=== PATIENT | male | born 1965 | race Caucasian/White ===

== ENCOUNTER 2018-03-01 13:34 | Inpatient (IN) | payer OTHER ==
[2018-03-01] MEDS ORDERED: SODIUM CHLORIDE 0.9% 1,000 ML IV STA (14:01)
[2018-03-01] MEDS ORDERED: ONDANSETRON 4 MG/2 ML VIAL IVP STA (14:01)
[2018-03-01 15:01] LABS: Basophils % (A) 0 %; Eosinophils # (A) 0.1 k/uL (0-0.7); Eosinophils % (A) 1 %; HCT 53.6 % (39.0-53.0); HGB 18.4 gm/dL (13.0-17.5); Lymphocytes # (A) 0.7 k/uL (1.0-4.8); Lymphocytes % (A) 3 %; MCH 29.3 pg (25.0-35.0); MCHC 34.4 g/dL (31.0-37.0); Mean Platelet Volume 7.5; Monocytes # (A) 1.1 k/uL (0-1.0); Monocytes % (A) 5 %; Neutrophils # (A) 20.4 k/uL (1.3-7.7); Neutrophils % (A) 91 %; Platelet Count 289 k/uL (150-450); RDW 12.8 % (11.5-15.5); WBC 22.4 k/uL (3.8-10.6)
--- NOTE | 2018-03-01 15:08 | ED ---
Abdominal Pain HPI - General Chief Complaint: Abdominal Pain Stated Complaint: Abd pain Time Seen by Provider: 03/01/18 14:01 Source: patient, RN notes reviewed Mode of arrival: ambulatory Limitations: no limitations - History of Present Illness Initial Comments: 52-year-old male presents emergency Department chief complaint of nausea vomiting. Patient states he had a few episodes throughout the night and a couple this morning. Patient states she has mild abdominal discomfort states that this feels more nauseated. Patient denies any melena, hematochezia, hematemesis or coffee-ground emesis. Patient states that he did have slight diarrhea no dysuria hematuria. Denies fever, chills no prior abdominal surgeries. No sick contacts. Patient denies chest pain, short of breath, flank pain. - Related Data Home Medications Medication Instructions Recorded Confirmed Lisinopril-Hctz 20-12.5 mg 1 tab PO DAILY 03/01/18 03/01/18 [Zestoretic 20-12.5] [place]-3 Fatty Acids/Fish Oil [Fish 1 cap PO DAILY 03/01/18 03/01/18 Oil 1,000 mg Softgel] Allergies Allergy/AdvReac Type Severity Reaction Status Date / Time No Known Allergies Allergy Verified 03/01/18 13:58 Review of Systems ROS Statement: Those systems with pertinent positive or pertinent negative responses have been documented in the HPI. ROS Other: All systems not noted in ROS Statement are negative. Past Medical History Past Medical History: No Reported History History of Any Multi-Drug Resistant Organisms: None Reported Past Surgical History: No Surgical Hx Reported Past Psychological History: No Psychological Hx Reported Smoking Status: Never smoker Past Alcohol Use History: None Reported Past Drug Use History: None Reported General Exam Limitations: no limitations General appearance: alert, in no apparent distress Head exam: Present: atraumatic, normocephalic, normal inspection Neck exam: Present: normal inspection. Absent: tenderness, meningismus, lymphadenopathy Respiratory exam: Present: normal lung sounds bilaterally. Absent: respiratory distress, wheezes, rales, rhonchi, stridor Cardiovascular Exam: Present: regular rate, normal rhythm, normal heart sounds. Absent: systolic murmur, diastolic murmur, rubs, gallop, clicks GI/Abdominal exam: Present: soft, normal bowel sounds. Absent: distended, tenderness, guarding, rebound, rigid Course Vital Signs 03/01/18 03/01/18 13:42 16:23 Temperature 98.9 F Pulse Rate 114 H 94 Respiratory 20 20 Rate Blood Pressure 179/105 165/82 O2 Sat by Pulse 99 97 Oximetry Medical Decision Making - Lab Data Result diagrams: 03/01/18 14:50 03/01/18 14:50 Lab Results 03/01/18 03/01/18 03/01/18 Range/Units 14:50 14:50 16:30 WBC 22.4 H (3.8-10.6) k/uL RBC 6.30 H (4.30-5.90) m/uL Hgb 18.4 H (13.0-17.5) gm/dL Hct 53.6 H (39.0-53.0) % MCV 85.0 (80.0-100.0) fL MCH 29.3 (25.0-35.0) pg MCHC 34.4 (31.0-37.0) g/dL RDW 12.8 (11.5-15.5) % Plt Count 289 (150-450) k/uL Neutrophils % 91 % Lymphocytes % 3 % Monocytes % 5 % Eosinophils % 1 % Basophils % 0 % Neutrophils # 20.4 H (1.3-7.7) k/uL Lymphocytes # 0.7 L (1.0-4.8) k/uL Monocytes # 1.1 H (0-1.0) k/uL Eosinophils # 0.1 (0-0.7) k/uL Basophils # 0.0 (0-0.2) k/uL Sodium 136 L (137-145) mmol/L Potassium 3.8 (3.5-5.1) mmol/L Chloride 100 (98-107) mmol/L Carbon Dioxide 20 L (22-30) mmol/L Anion Gap 16 mmol/L BUN 19 (9-20) mg/dL Creatinine 0.90 (0.66-1.25) mg/dL Est GFR (CKD-EPI)AfAm >90 (>60 ml/min/1.73 sqM) Est GFR (CKD-EPI)NonAf >90 (>60 ml/min/1.73 sqM) Glucose 194 H (74-99) mg/dL Plasma Lactic Acid Yair 2.5 H* (0.7-2.0) mmol/L Calcium 9.6 (8.4-10.2) mg/dL Total Bilirubin 1.4 H (0.2-1.3) mg/dL AST 144 H (17-59) U/L ALT 300 H (21-72) U/L Alkaline Phosphatase 143 H (38-126) U/L Total Protein 7.7 (6.3-8.2) g/dL Albumin 4.2 (3.5-5.0) g/dL Amylase 611 H* (30-110) U/L Lipase 3042 H (23-300) U/L Disposition Clinical Impression: Choledocholithiasis, Pancreatitis, Leukocytosis Disposition: ADMITTED IP TO THIS HOSP Condition: Fair Referrals: Koby Miranda DO [Primary Care Provider] - 1-2 days
[2018-03-01 15:14] LABS: ALT 300 U/L (21-72); AST 144 U/L (17-59); Albumin 4.2 g/dL (3.5-5.0); Alkaline Phosphatase 143 U/L (38-126); Anion Gap 16 mmol/L; Blood Urea Nitrogen 19 mg/dL (9-20); Calcium 9.6 mg/dL (8.4-10.2); Carbon Dioxide 20 mmol/L (22-30); Chloride 100 mmol/L (98-107); Glucose 194 mg/dL (74-99); Potassium 3.8 mmol/L (3.5-5.1); Sodium 136 mmol/L (137-145); Total Bilirubin 1.4 mg/dL (0.2-1.3); Total Protein 7.7 g/dL (6.3-8.2)
[2018-03-01] MEDS ORDERED: RX INFO: IV CONTRAST WAS GIVEN 1 EACH MISC MISCELLANE PRN (15:28)
[2018-03-01 15:29] LABS: Lipase 3042 U/L (23-300)
[2018-03-01 15:30] LABS: Amylase 611 U/L (30-110)
--- NOTE | 2018-03-01 16:20 | US ---
EXAMINATION TYPE: US abdomen limited DATE OF EXAM: 03/01/2018 COMPARISON: NONE CLINICAL HISTORY: 52-year-old male Pain. Abdominal pain since last night, vomiting Technique: Multiple sonographic images of the right upper quadrant are obtained. FINDINGS: AUTOMATION APPLICATION ENGINEER NOTES: Extreme technical limitations due to patient's body habitus ( 5'6" and 388 poun ds) and overlying bowel content Liver Length: 21.4 cm Gallbladder Wall: 0.4 cm CBD: 4.5 mm Right Kidney: 11.6 x 5.0 x 5.3 cm Pancreas: Obscured by bowel gas Liver: limited evaluation, unable to penetrate, enlarged, attenuating with areas of focal sparing ad jacent to GB. Assessment for focal lesions secondarily limited. Gallbladder: stones, GB wall upper limits of normal there are no abnormal distention. Evidence for sonographic Strickland's sign: no CBD: limited evaluation Right Kidney: no evidence of hydronephrosis. IMPRESSION: 1. Very limited exam due to large body habitus. 2. Hepatomegaly (21.4 cm) with severe hepatic steatosis. 3. Cholelithiasis. There is borderline gallbladder wall thickening. No sonographic Strickland sign or abn ormal distention. Findings may reflect chronic cholecystitis. 4. A portion of the bile duct is visualized and is not dilated.
[2018-03-01] MEDS ORDERED: SODIUM CHLORIDE 0.9% 1,000 ML IV ONE (17:01)
[2018-03-01] MEDS ORDERED: PIPERACILLIN-TAZOBACTAM 3.375 GM in DEXTROSE/WATER 1 50ML.BAG IVPB STA (17:02)
[2018-03-01] MEDS ORDERED: NALOXONE 0.4 MG/ML 1 ML VIAL IV PRN (17:09)
[2018-03-01] MEDS ORDERED: ONDANSETRON 4 MG/2 ML VIAL IVP PRN (17:09)
[2018-03-01] MEDS: SODIUM CHLORIDE 0.9% 1,000 ML IV SCH (18:16)
[2018-03-01] MEDS ORDERED: MORPHINE SULFATE 4MG/4ML SYRG IVP PRN ×2 (18:20→22:03)
--- NOTE | 2018-03-01 20:01 | P.HPIM ---
History of Present Illness 52-year-old male presents emergency Department chief complaint of nausea vomiting. Patient states he had a few episodes throughout the night and a couple this morning. Patient states she has mild abdominal discomfort states that this feels more nauseated. Patient denies any melena, hematochezia, hematemesis or coffee-ground emesis. Patient states that he did have slight diarrhea no dysuria hematuria. Denies fever, chills no prior abdominal surgeries. No sick contacts. Patient denies chest pain, short of breath, flank pain. Patient's pain is 10/10 severity epigastric radiating to bilateral upper abdominal area. Patient is found to have pancreatic that is with elevated lipase and the and malaise along with elevated liver enzymes and cholelithiasis without any cholecystitis although there is a suspicious gallbladder thickening without positive Strickland sign clinically or radiologically. Patient was started on antibiotics IV fluids and by mouth, surgery was consulted. Review of Systems REVIEW OF SYSTEMS: CONSTITUTIONAL: No fever, no malaise, no fatigue. HEENT: No recent visual problems or hearing problems. Denied any sore throat. CARDIOVASCULAR: No chest pain, orthopnea, PND, no palpitations, no syncope. PULMONARY: No shortness of breath, no cough, no hemoptysis. GASTROINTESTINAL: As mentioned in HPI NEUROLOGICAL: No headaches, no weakness, no numbness. HEMATOLOGICAL: Denies any bleeding or petechiae. GENITOURINARY: Denies any burning micturition, frequency, or urgency. MUSCULOSKELETAL/RHEUMATOLOGICAL: Denies any joint pain, swelling, or any muscle pain. ENDOCRINE: Denies any polyuria or polydipsia. The rest of the 14-point review of systems is negative. Past Medical History Past Medical History: No Reported History History of Any Multi-Drug Resistant Organisms: None Reported Past Surgical History: No Surgical Hx Reported Past Psychological History: No Psychological Hx Reported Smoking Status: Never smoker Past Alcohol Use History: None Reported Past Drug Use History: None Reported Medications and Allergies Home Medications Medication Instructions Recorded Confirmed Type Lisinopril-Hctz 20-12.5 mg 1 tab PO DAILY 03/01/18 03/01/18 History [Zestoretic 20-12.5] [place]-3 Fatty Acids/Fish Oil [Fish 1 cap PO DAILY 03/01/18 03/01/18 History Oil 1,000 mg Softgel] Allergies Allergy/AdvReac Type Severity Reaction Status Date / Time No Known Allergies Allergy Verified 03/01/18 13:58 Physical Exam Vitals: Vital Signs Temp Pulse Resp BP Pulse Ox 03/01/18 18:43 111 H 18 164/82 95 03/01/18 16:23 94 20 165/82 97 03/01/18 13:42 98.9 F 114 H 20 179/105 99 Intake and Output 03/01/18 03/01/18 03/01/18 06:59 14:59 22:59 Other: Weight 175.994 kg PHYSICAL EXAMINATION: GENERAL: The patient is alert and oriented x3, not in any acute distress. Morbidly obese HEENT: Pupils are round and equally reacting to light. EOMI. No scleral icterus. No conjunctival pallor. Normocephalic, atraumatic. No pharyngeal erythema. No thyromegaly. CARDIOVASCULAR: S1 and S2 present. No murmurs, rubs, or gallops. PULMONARY: Chest is clear to auscultation, no wheezing or crackles. ABDOMEN: Soft, obese belly epigastric abdominal tenderness MUSCULOSKELETAL: No joint swelling or deformity. EXTREMITIES: No cyanosis, clubbing, or pedal edema. NEUROLOGICAL: Gross neurological examination did not reveal any focal deficits. SKIN: No rashes. Results CBC & Chem 7: 03/01/18 14:50 03/01/18 14:50 Labs: Abnormal Lab Results - Last 24 Hours (Table) 03/01/18 03/01/18 03/01/18 Range/Units 14:50 14:50 16:30 WBC 22.4 H (3.8-10.6) k/uL RBC 6.30 H (4.30-5.90) m/uL Hgb 18.4 H (13.0-17.5) gm/dL Hct 53.6 H (39.0-53.0) % Neutrophils # 20.4 H (1.3-7.7) k/uL Lymphocytes # 0.7 L (1.0-4.8) k/uL Monocytes # 1.1 H (0-1.0) k/uL Sodium 136 L (137-145) mmol/L Carbon Dioxide 20 L (22-30) mmol/L Glucose 194 H (74-99) mg/dL Plasma Lactic Acid Yair 2.5 H* (0.7-2.0) mmol/L Total Bilirubin 1.4 H (0.2-1.3) mg/dL AST 144 H (17-59) U/L ALT 300 H (21-72) U/L Alkaline Phosphatase 143 H (38-126) U/L Amylase 611 H* (30-110) U/L Lipase 3042 H (23-300) U/L Assessment and Plan Plan: -Pancreatic that is: Possibly gallstone pancreatitis patient will be nothing by mouth continue Zosyn for now. Patient is not an alcoholic morbid obesity -cholelithiasis low possibly of cholecystitis surgery was consulted -Leukocytosis secondary to pancreatitis. Next and-elevated liver enzymes repeat liver enzymes will be obtained probably due to passed gallstone -Tachycardia: Secondary to pain patient was started on morphine IV for pain
[2018-03-01] MEDS: PANTOPRAZOLE 40 MG/10 ML VIAL IVP SCH (20:26)
[2018-03-01] MEDS: HYDROcodone/APAP 5-325MG 1 EACH TAB PO PRN (21:05)
[2018-03-02] MEDS ORDERED: MORPHINE SULFATE 4MG/4ML SYRG IVP PRN (00:05)
[2018-03-02] MEDS: SODIUM CHLORIDE 0.9% 1,000 ML IV SCH ×2 (04:26→12:02)
[2018-03-02] MEDS: HYDROcodone/APAP 5-325MG 1 EACH TAB PO PRN (04:49)
[2018-03-02] MEDS: MORPHINE SULFATE 4MG/4ML SYRG IVP PRN ×3 (06:19→18:17)
[2018-03-02 07:43] LABS: ALT 196 U/L (21-72); AST 65 U/L (17-59); Albumin 3.6 g/dL (3.5-5.0); Alkaline Phosphatase 98 U/L (38-126); Anion Gap 12 mmol/L; Blood Urea Nitrogen 24 mg/dL (9-20); Calcium 8.5 mg/dL (8.4-10.2); Carbon Dioxide 28 mmol/L (22-30); Chloride 98 mmol/L (98-107); Cholesterol 142 mg/dL (<200); Glucose 141 mg/dL (74-99); HDL Cholesterol 52 mg/dL (40-60); LDL Cholesterol,Calculated 69 mg/dL (0-99); Potassium 3.8 mmol/L (3.5-5.1); Sodium 138 mmol/L (137-145); Total Bilirubin 1.1 mg/dL (0.2-1.3); Total Protein 6.8 g/dL (6.3-8.2); Triglycerides 104 mg/dL (<150)
[2018-03-02 07:47] LABS: HCT 53.1 % (39.0-53.0); HGB 17.4 gm/dL (13.0-17.5); MCH 28.9 pg (25.0-35.0); MCHC 32.9 g/dL (31.0-37.0); MCV 88.1 fL (80.0-100.0); Mean Platelet Volume 7.4; Platelet Count 238 k/uL (150-450); RBC 6.03 m/uL (4.30-5.90); RDW 13.2 % (11.5-15.5)
[2018-03-02 07:49] LABS: WBC 29.8 k/uL (3.8-10.6)
[2018-03-02] MEDS ORDERED: LISINOPRIL-HCTZ 20-12.5 MG 1 EACH TAB PO SCH (09:00)
[2018-03-02] MEDS: OMEGA 3 1000MG PO SCH (11:43)
[2018-03-02] MEDS: PANTOPRAZOLE 40 MG/10 ML VIAL IVP SCH ×2 (11:50→21:51)
--- NOTE | 2018-03-02 14:43 | P.PN ---
Subjective Patient was admitted for gall stone pancreatitis. Patient's abdominal pain improved but still complaining of abdominal pain mostly in the lower quadrants rather and epigastric abdominal pain. Patient leukocytosis worsened liver enzymes improved. Patient will remain nothing by mouth tonight if his symptoms improve can be started on clear liquid diet tomorrow. Nausea improved. Discuss with surgery patient eventually will need a cholecystectomy because of the morbid obesity patient will be low to intermediate risk for surgery. I do not believe patient will need any further testing for preoperative clearance Constitutional: Denied any fatigue denied any fever. Cardio vascular: denied any chest pain, palpitations Gastrointestinal denied any nausea vomiting Pulmonary: Denied any shortness of breath cough Neurologic denied any new focal deficits Objective - Vital Signs Vital signs: Vital Signs Temp 98.2 F 03/02/18 07:00 Pulse 98 03/02/18 07:00 Resp 17 03/02/18 07:00 BP 116/60 03/02/18 07:00 Pulse Ox 94 L 03/02/18 07:00 Intake & Output 03/01/18 03/02/18 03/02/18 18:59 06:59 18:59 Intake Total 0 Balance 0 Weight 175.994 kg 175.994 kg Intake: Oral 0 Other: # Voids 2 - Exam GENERAL: The patient is alert and oriented x3, not in any acute distress. Morbidly obese HEENT: Pupils are round and equally reacting to light. EOMI. No scleral icterus. No conjunctival pallor. Normocephalic, atraumatic. No pharyngeal erythema. No thyromegaly. CARDIOVASCULAR: S1 and S2 present. No murmurs, rubs, or gallops. PULMONARY: Chest is clear to auscultation, no wheezing or crackles. ABDOMEN: Soft, obese belly epigastric abdominal tenderness MUSCULOSKELETAL: No joint swelling or deformity. EXTREMITIES: No cyanosis, clubbing, or pedal edema. NEUROLOGICAL: Gross neurological examination did not reveal any focal deficits. SKIN: No rashes. - Labs CBC & Chem 7: 03/02/18 07:01 03/02/18 07:01 Labs: Abnormal Lab Results - Last 24 Hours (Table) 03/01/18 03/01/18 03/01/18 Range/Units 14:50 14:50 16:30 WBC 22.4 H (3.8-10.6) k/uL RBC 6.30 H (4.30-5.90) m/uL Hgb 18.4 H (13.0-17.5) gm/dL Hct 53.6 H (39.0-53.0) % Neutrophils # 20.4 H (1.3-7.7) k/uL Lymphocytes # 0.7 L (1.0-4.8) k/uL Monocytes # 1.1 H (0-1.0) k/uL Sodium 136 L (137-145) mmol/L Carbon Dioxide 20 L (22-30) mmol/L BUN (9-20) mg/dL Glucose 194 H (74-99) mg/dL Plasma Lactic Acid Yair 2.5 H* (0.7-2.0) mmol/L Total Bilirubin 1.4 H (0.2-1.3) mg/dL AST 144 H (17-59) U/L ALT 300 H (21-72) U/L Alkaline Phosphatase 143 H (38-126) U/L Amylase 611 H* (30-110) U/L Lipase 3042 H (23-300) U/L 03/02/18 03/02/18 Range/Units 07:01 07:01 WBC 29.8 H* (3.8-10.6) k/uL RBC 6.03 H (4.30-5.90) m/uL Hgb (13.0-17.5) gm/dL Hct 53.1 H (39.0-53.0) % Neutrophils # (1.3-7.7) k/uL Lymphocytes # (1.0-4.8) k/uL Monocytes # (0-1.0) k/uL Sodium (137-145) mmol/L Carbon Dioxide (22-30) mmol/L BUN 24 H (9-20) mg/dL Glucose 141 H (74-99) mg/dL Plasma Lactic Acid Yair (0.7-2.0) mmol/L Total Bilirubin (0.2-1.3) mg/dL AST 65 H (17-59) U/L ALT 196 H (21-72) U/L Alkaline Phosphatase (38-126) U/L Amylase (30-110) U/L Lipase (23-300) U/L Assessment and Plan Plan: -Pancreatic that is: Possibly gallstone pancreatitis patient will be nothing by mouth continue Zosyn for now. Patient is not an alcoholic , patient will need a cholecystectomy will be low to intermediate risk for surgery will obtain an EKG. Patient doesn't have any murmurs no further testing is necessary for preoperative clearance. Of course this surgery will be done once his pancreatitis is taken care of. morbid obesity -cholelithiasis low possibly of cholecystitis surgery was consulted -Leukocytosis secondary to pancreatitis. Next and-elevated liver enzymes repeat liver enzymes will be obtained probably due to passed gallstone -Tachycardia: Secondary to pain patient was started on morphine IV for pain
--- NOTE | 2018-03-02 14:53 | P.GSCN ---
History of Present Illness Consult date: 03/02/18 History of present illness: This is a 52-year-old male who began experiencing abdominal pain 2 days ago.He states he's never had pain like this before. He denies any history of surgeries. He denies any drinking of any alcohol for many years. He denies fevers or chills. He states his abdominal pain is mostly in his upper abdomen and wraps around both sides. He's passing normal bowel movements denies any nausea vomiting Past Medical History Past Medical History: No Reported History History of Any Multi-Drug Resistant Organisms: None Reported Past Surgical History: No Surgical Hx Reported Past Psychological History: No Psychological Hx Reported Smoking Status: Never smoker Past Alcohol Use History: None Reported Past Drug Use History: None Reported Medications and Allergies Home Medications Medication Instructions Recorded Confirmed Type Lisinopril-Hctz 20-12.5 mg 1 tab PO DAILY 03/01/18 03/01/18 History [Zestoretic 20-12.5] [place]-3 Fatty Acids/Fish Oil [Fish 1 cap PO DAILY 03/01/18 03/01/18 History Oil 1,000 mg Softgel] Allergies Allergy/AdvReac Type Severity Reaction Status Date / Time No Known Allergies Allergy Verified 03/01/18 13:58 Surgical - Exam Osteopathic Statement: *. No significant issues noted on an osteopathic structural exam other than those noted in the History and Physical/Consult. Vital Signs Temp Pulse Resp BP Pulse Ox 98.9 F 114 H 20 179/105 99 03/01/18 13:42 03/01/18 13:42 03/01/18 13:42 03/01/18 13:42 03/01/18 13:42 - General Morbidly obese - Eyes PERRL - ENT normal mucosa - Neck trachea midline - Respiratory normal expansion, normal respiratory effort - Cardiovascular Rhythm: regular - Abdomen Morbidly obese soft belly mild tenderness palpation midepigastric area no rebound rigidity or guarding - Neurologic normal coordination, normal sensation - Psychiatric oriented to time, oriented to person, oriented to place Results - Labs 03/02/18 07:01 03/02/18 07:01 Abnormal Lab Results - Last 24 Hours (Table) 03/01/18 03/01/18 03/01/18 Range/Units 14:50 14:50 16:30 WBC 22.4 H (3.8-10.6) k/uL RBC 6.30 H (4.30-5.90) m/uL Hgb 18.4 H (13.0-17.5) gm/dL Hct 53.6 H (39.0-53.0) % Neutrophils # 20.4 H (1.3-7.7) k/uL Lymphocytes # 0.7 L (1.0-4.8) k/uL Monocytes # 1.1 H (0-1.0) k/uL Sodium 136 L (137-145) mmol/L Carbon Dioxide 20 L (22-30) mmol/L BUN (9-20) mg/dL Glucose 194 H (74-99) mg/dL Plasma Lactic Acid Yair 2.5 H* (0.7-2.0) mmol/L Total Bilirubin 1.4 H (0.2-1.3) mg/dL AST 144 H (17-59) U/L ALT 300 H (21-72) U/L Alkaline Phosphatase 143 H (38-126) U/L Amylase 611 H* (30-110) U/L Lipase 3042 H (23-300) U/L 03/02/18 03/02/18 Range/Units 07:01 07:01 WBC 29.8 H* (3.8-10.6) k/uL RBC 6.03 H (4.30-5.90) m/uL Hgb (13.0-17.5) gm/dL Hct 53.1 H (39.0-53.0) % Neutrophils # (1.3-7.7) k/uL Lymphocytes # (1.0-4.8) k/uL Monocytes # (0-1.0) k/uL Sodium (137-145) mmol/L Carbon Dioxide (22-30) mmol/L BUN 24 H (9-20) mg/dL Glucose 141 H (74-99) mg/dL Plasma Lactic Acid Yair (0.7-2.0) mmol/L Total Bilirubin (0.2-1.3) mg/dL AST 65 H (17-59) U/L ALT 196 H (21-72) U/L Alkaline Phosphatase (38-126) U/L Amylase (30-110) U/L Lipase (23-300) U/L Diabetes panel 03/01/18 03/02/18 Range/Units 14:50 07:01 Sodium 136 L 138 (137-145) mmol/L Potassium 3.8 3.8 (3.5-5.1) mmol/L Chloride 100 98 (98-107) mmol/L Carbon Dioxide 20 L 28 (22-30) mmol/L BUN 19 24 H (9-20) mg/dL Creatinine 0.90 0.90 (0.66-1.25) mg/dL Glucose 194 H 141 H (74-99) mg/dL Calcium 9.6 8.5 (8.4-10.2) mg/dL AST 144 H 65 H (17-59) U/L ALT 300 H 196 H (21-72) U/L Alkaline Phosphatase 143 H 98 (38-126) U/L Total Protein 7.7 6.8 (6.3-8.2) g/dL Albumin 4.2 3.6 (3.5-5.0) g/dL Triglycerides 104 (<150) mg/dL HDL Cholesterol 52 (40-60) mg/dL Calcium panel 03/01/18 03/02/18 Range/Units 14:50 07:01 Calcium 9.6 8.5 (8.4-10.2) mg/dL Albumin 4.2 3.6 (3.5-5.0) g/dL Pituitary panel 03/01/18 03/02/18 Range/Units 14:50 07:01 Sodium 136 L 138 (137-145) mmol/L Potassium 3.8 3.8 (3.5-5.1) mmol/L Chloride 100 98 (98-107) mmol/L Carbon Dioxide 20 L 28 (22-30) mmol/L BUN 19 24 H (9-20) mg/dL Creatinine 0.90 0.90 (0.66-1.25) mg/dL Glucose 194 H 141 H (74-99) mg/dL Calcium 9.6 8.5 (8.4-10.2) mg/dL Adrenal panel 03/01/18 03/02/18 Range/Units 14:50 07:01 Sodium 136 L 138 (137-145) mmol/L Potassium 3.8 3.8 (3.5-5.1) mmol/L Chloride 100 98 (98-107) mmol/L Carbon Dioxide 20 L 28 (22-30) mmol/L BUN 19 24 H (9-20) mg/dL Creatinine 0.90 0.90 (0.66-1.25) mg/dL Glucose 194 H 141 H (74-99) mg/dL Calcium 9.6 8.5 (8.4-10.2) mg/dL Total Bilirubin 1.4 H 1.1 (0.2-1.3) mg/dL AST 144 H 65 H (17-59) U/L ALT 300 H 196 H (21-72) U/L Alkaline Phosphatase 143 H 98 (38-126) U/L Total Protein 7.7 6.8 (6.3-8.2) g/dL Albumin 4.2 3.6 (3.5-5.0) g/dL Assessment and Plan Assessment: Pancreatitis likely secondary to gallstones Plan: Continue medical management with nothing by mouth and IV fluids. I discussed with the patient he would likely need a cholecystectomy prior to discharge once his pancreatitis is cleared. I had a discussion with the patient regarding his risks of surgery. Given the patient's morbid obesity he is at a much higher risk for complications of surgery. The risks of surgery including bleeding infection damage surrounding tissue need for conversion to open and damage to common bile duct wall discussed with the patient he stated he understood and consented.
[2018-03-02 14:58] LABS: Amylase 537 U/L (30-110)
[2018-03-02 14:59] LABS: Lipase 2612 U/L (23-300)
[2018-03-02] MEDS: NYSTATIN 100,000 UNIT/GM POWD 15 GM TOPICAL SCH (21:51)
[2018-03-03] MEDS: MORPHINE SULFATE 4MG/4ML SYRG IVP PRN ×6 (00:21→21:45)
[2018-03-03] MEDS: SODIUM CHLORIDE 0.9% 1,000 ML IV SCH ×3 (00:21→20:31)
[2018-03-03 07:46] LABS: HCT 44.3 % (39.0-53.0); HGB 14.8 gm/dL (13.0-17.5); MCH 29.7 pg (25.0-35.0); MCHC 33.3 g/dL (31.0-37.0); MCV 89.1 fL (80.0-100.0); Mean Platelet Volume 7.9; Platelet Count 193 k/uL (150-450); RBC 4.97 m/uL (4.30-5.90); RDW 13.3 % (11.5-15.5); WBC 22.1 k/uL (3.8-10.6)
[2018-03-03] MEDS: OMEGA 3 1000MG PO SCH (09:46)
[2018-03-03] MEDS: PANTOPRAZOLE 40 MG/10 ML VIAL IVP SCH ×2 (09:48→21:45)
[2018-03-03] MEDS: NYSTATIN 100,000 UNIT/GM POWD 15 GM TOPICAL SCH ×2 (09:48→21:46)
--- NOTE | 2018-03-03 11:11 | P.PN ---
Subjective Progress Note Date: 03/03/18 Patient is feeling better today, no NV no BM. Abdominal pain is still there but improved per patient. He is hungry Objective - Vital Signs Vital signs: Vital Signs Temp 97.7 F 03/03/18 02:00 Pulse 128 H 03/03/18 02:00 Resp 19 03/03/18 02:00 BP 133/76 03/03/18 02:00 Pulse Ox 93 L 03/03/18 07:05 Intake & Output 03/02/18 03/03/18 03/03/18 18:59 06:59 18:59 Intake Total 750 0 Balance 750 0 Intake: Intake, IV Titration 750 Amount Sodium Chloride 0.9% 1, 750 000 ml @ 100 mls/hr IV . Q10H IGNACIO Rx#:[id number] Oral 0 0 Other: # Voids 2 2 - Constitutional General appearance: Present: cooperative - Respiratory Details: nonlabored - Cardiovascular Rhythm: regular - Gastrointestinal Gastrointestinal Comment(s): obese, soft, mild TTP mid epigastric - Psychiatric Psychiatric: Present: A&O x's 3 - Labs CBC & Chem 7: 03/03/18 06:18 03/02/18 07:01 Labs: Abnormal Lab Results - Last 24 Hours (Table) 03/02/18 03/03/18 03/03/18 Range/Units 07:01 06:18 06:18 WBC 22.1 H (3.8-10.6) k/uL Amylase 537 H* (30-110) U/L Lipase 2612 H 1000 H (23-300) U/L Microbiology - Last 24 Hours (Table) 03/01/18 16:30 Blood Culture - Preliminary Blood No Growth after 24 hours Assessment and Plan Assessment: Pancreatitis likely secondary to gallstones Plan: Continue NPO may start clears if pain is improved. Pancreatitis seems to be improving, plan is for lap aniya prior to discharge once pancreatitis has resolved. Patient remains higher risk secondary to morbid obesity
--- NOTE | 2018-03-03 16:23 | P.PN ---
Subjective Patient was admitted for gall stone pancreatitis. Patient's abdominal pain improved but still complaining of abdominal pain mostly in the lower quadrants rather and epigastric abdominal pain. Patient leukocytosis worsened liver enzymes improved. Patient will remain nothing by mouth tonight if his symptoms improve can be started on clear liquid diet tomorrow. Nausea improved. Discuss with surgery patient eventually will need a cholecystectomy because of the morbid obesity patient will be low to intermediate risk for surgery. I do not believe patient will need any further testing for preoperative clearance 03/03/2018 Patient's pain improved nausea improved but because of the severity of pancreatitis surgery is recommending him to be nothing by mouth. Patient is clinically doing well was started on clear liquid diet tomorrow. Constitutional: Denied any fatigue denied any fever. Cardio vascular: denied any chest pain, palpitations Gastrointestinal denied any nausea vomiting Pulmonary: Denied any shortness of breath cough Neurologic denied any new focal deficits Objective - Vital Signs Vital signs: Vital Signs Temp 97.7 F 03/03/18 14:02 Pulse 100 03/03/18 14:02 Resp 16 03/03/18 14:02 BP 146/83 03/03/18 14:02 Pulse Ox 95 03/03/18 14:02 Intake & Output 03/02/18 03/03/18 03/03/18 18:59 06:59 18:59 Intake Total 750 750 Balance 750 750 Intake: Intake, IV Titration 750 750 Amount Sodium Chloride 0.9% 1, 750 750 000 ml @ 100 mls/hr IV . Q10H [facility] Rx#:[id number] Oral 0 0 Other: # Voids 2 2 2 - Exam GENERAL: The patient is alert and oriented x3, not in any acute distress. Morbidly obese HEENT: Pupils are round and equally reacting to light. EOMI. No scleral icterus. No conjunctival pallor. Normocephalic, atraumatic. No pharyngeal erythema. No thyromegaly. CARDIOVASCULAR: S1 and S2 present. No murmurs, rubs, or gallops. PULMONARY: Chest is clear to auscultation, no wheezing or crackles. ABDOMEN: Soft, obese belly epigastric abdominal tenderness improved MUSCULOSKELETAL: No joint swelling or deformity. EXTREMITIES: No cyanosis, clubbing, or pedal edema. NEUROLOGICAL: Gross neurological examination did not reveal any focal deficits. SKIN: No rashes. - Labs CBC & Chem 7: 03/03/18 06:18 03/02/18 07:01 Labs: Abnormal Lab Results - Last 24 Hours (Table) 03/03/18 03/03/18 Range/Units 06:18 06:18 WBC 22.1 H (3.8-10.6) k/uL Lipase 1000 H (23-300) U/L Microbiology - Last 24 Hours (Table) 03/01/18 16:30 Blood Culture - Preliminary Blood No Growth after 24 hours Assessment and Plan Plan: -Acute pancreatitis : Possibly gallstone pancreatitis patient will be nothing by mouth continue Zosyn for now. Patient is not an alcoholic , patient will need a cholecystectomy will be low to intermediate risk for surgery will obtain an EKG. Patient doesn't have any murmurs no further testing is necessary for preoperative clearance. Of course this surgery will be done once his pancreatitis is taken care of. morbid obesity -cholelithiasis low possibly of cholecystitis surgery was consulted -Leukocytosis secondary to pancreatitis. Next and-elevated liver enzymes repeat liver enzymes will be obtained probably due to passed gallstone -Tachycardia: Secondary to pain patient was started on morphine IV for pain
[2018-03-04] MEDS: MORPHINE SULFATE 4MG/4ML SYRG IVP PRN ×4 (03:54→16:35)
[2018-03-04] MEDS: PANTOPRAZOLE 40 MG/10 ML VIAL IVP SCH ×2 (09:00→20:10)
[2018-03-04] MEDS: OMEGA 3 1000MG PO SCH (12:12)
[2018-03-04] MEDS: SODIUM CHLORIDE 0.9% 1,000 ML IV SCH ×2 (12:12→20:13)
[2018-03-04] MEDS: NYSTATIN 100,000 UNIT/GM POWD 15 GM TOPICAL SCH (13:03)
[2018-03-04 13:12] LABS: ALT 75 U/L (21-72); AST 27 U/L (17-59); Albumin 2.8 g/dL (3.5-5.0); Alkaline Phosphatase 76 U/L (38-126); Anion Gap 10 mmol/L; Blood Urea Nitrogen 20 mg/dL (9-20); Calcium 8.1 mg/dL (8.4-10.2); Carbon Dioxide 29 mmol/L (22-30); Chloride 103 mmol/L (98-107); Glucose 121 mg/dL (74-99); Potassium 3.4 mmol/L (3.5-5.1); Sodium 142 mmol/L (137-145); Total Bilirubin 0.7 mg/dL (0.2-1.3); Total Protein 5.6 g/dL (6.3-8.2)
[2018-03-04 13:17] LABS: Basophils % (A) 0 %; Eosinophils % (A) 0 %; HCT 42.1 % (39.0-53.0); HGB 13.7 gm/dL (13.0-17.5); Lymphocytes # (A) 0.6 k/uL (1.0-4.8); Lymphocytes % (A) 4 %; MCH 29.3 pg (25.0-35.0); MCHC 32.6 g/dL (31.0-37.0); MCV 89.9 fL (80.0-100.0); Monocytes # (A) 0.7 k/uL (0-1.0); Monocytes % (A) 4 %; Neutrophils # (A) 13.8 k/uL (1.3-7.7); Neutrophils % (A) 90 %; Platelet Count 200 k/uL (150-450); RBC 4.68 m/uL (4.30-5.90); WBC 15.3 k/uL (3.8-10.6)
[2018-03-04 15:44] LABS: Appearance,Urine Cloudy (Clear); Bacteria,Urine Rare /hpf; Bilirubin,Urine Negative (Negative); Blood,Urine Moderate (Negative); Color,Urine Yellow; Glucose,Urine (UA) Negative (Negative); Ketones,Urine 2+ (Negative); Leukocyte Esterase,Urine Negative (Negative); Mucus,Urine Rare /hpf; Nitrite,Urine Negative (Negative); PH, Urine 6.5 (5.0-8.0); Protein,Urine 2+ (Negative); RBC,Urine 4 /hpf (0-5); Specific Gravity,Urine 1.021 (1.001-1.035); Squamous Epithelial Cell,Urine <1 /hpf (0-4); Urobilinogen,Urine <2.0 mg/dL (<2.0); WBC,Urine 11 /hpf (0-5)
--- NOTE | 2018-03-04 17:56 | P.PN ---
Subjective Patient was admitted for gall stone pancreatitis. Patient's abdominal pain improved but still complaining of abdominal pain mostly in the lower quadrants rather and epigastric abdominal pain. Patient leukocytosis worsened liver enzymes improved. Patient will remain nothing by mouth tonight if his symptoms improve can be started on clear liquid diet tomorrow. Nausea improved. Discuss with surgery patient eventually will need a cholecystectomy because of the morbid obesity patient will be low to intermediate risk for surgery. I do not believe patient will need any further testing for preoperative clearance 03/03/2018 Patient's pain improved nausea improved but because of the severity of pancreatitis surgery is recommending him to be nothing by mouth. Patient is clinically doing well was started on clear liquid diet tomorrow. 03/04/2018 Patient does have significant symptomatic improvement. Patient will be started on clear liquid diet Constitutional: Denied any fatigue denied any fever. Cardio vascular: denied any chest pain, palpitations Gastrointestinal denied any nausea vomiting Pulmonary: Denied any shortness of breath cough Neurologic denied any new focal deficits Objective - Vital Signs Vital signs: Vital Signs Temp 98.7 F 03/04/18 15:00 Pulse 92 03/04/18 15:00 Resp 16 03/04/18 15:00 BP 142/86 03/04/18 15:00 Pulse Ox 96 03/04/18 15:00 Intake & Output 03/03/18 03/04/18 03/04/18 18:59 06:59 18:59 Intake Total 750 Balance 750 Intake: Intake, IV Titration 750 Amount Sodium Chloride 0.9% 1, 750 000 ml @ 100 mls/hr IV . Q10H [facility] Rx#:[id number] Oral 0 Other: # Voids 2 2 # Bowel Movements 2 - Exam GENERAL: The patient is alert and oriented x3, not in any acute distress. Morbidly obese HEENT: Pupils are round and equally reacting to light. EOMI. No scleral icterus. No conjunctival pallor. Normocephalic, atraumatic. No pharyngeal erythema. No thyromegaly. CARDIOVASCULAR: S1 and S2 present. No murmurs, rubs, or gallops. PULMONARY: Chest is clear to auscultation, no wheezing or crackles. ABDOMEN: Soft, obese belly epigastric abdominal tenderness improved MUSCULOSKELETAL: No joint swelling or deformity. EXTREMITIES: No cyanosis, clubbing, or pedal edema. NEUROLOGICAL: Gross neurological examination did not reveal any focal deficits. SKIN: No rashes. - Labs CBC & Chem 7: 03/04/18 12:39 03/04/18 12:39 Labs: Abnormal Lab Results - Last 24 Hours (Table) 03/04/18 03/04/18 03/04/18 Range/Units 12:39 12:39 15:00 WBC 15.3 H (3.8-10.6) k/uL Neutrophils # 13.8 H (1.3-7.7) k/uL Lymphocytes # 0.6 L (1.0-4.8) k/uL Potassium 3.4 L (3.5-5.1) mmol/L Glucose 121 H (74-99) mg/dL Calcium 8.1 L (8.4-10.2) mg/dL ALT 75 H (21-72) U/L Total Protein 5.6 L (6.3-8.2) g/dL Albumin 2.8 L (3.5-5.0) g/dL Urine Protein 2+ H (Negative) Urine Ketones 2+ H (Negative) Urine Blood Moderate H (Negative) Urine WBC 11 H (0-5) /hpf Urine Bacteria Rare H (None) /hpf Urine Mucus Rare H (None) /hpf Microbiology - Last 24 Hours (Table) 03/01/18 16:30 Blood Culture - Preliminary Blood No Growth after 48 hours Assessment and Plan Plan: -Acute pancreatitis : Possibly gallstone pancreatitis, diet will be advanced. Patient is not an alcoholic , Patient's diet will be advanced to clear liquid morbid obesity -cholelithiasis low possibly of cholecystitis surgery was consulted -Leukocytosis secondary to pancreatitis. Next and-elevated liver enzymes repeat liver enzymes will be obtained probably due to passed gallstone, leukocytosis improving -Tachycardia: Secondary to pain patient was started on morphine IV for pain
[2018-03-04] MEDS: HYDROcodone/APAP 5-325MG 1 EACH TAB PO PRN (21:53)
[2018-03-05] MEDS: NYSTATIN 100,000 UNIT/GM POWD 15 GM TOPICAL SCH ×3 (01:14→23:01)
[2018-03-05] MEDS: SODIUM CHLORIDE 0.9% 1,000 ML IV SCH ×3 (01:15→23:01)
[2018-03-05] MEDS: HYDROcodone/APAP 5-325MG 1 EACH TAB PO PRN ×3 (03:34→23:16)
[2018-03-05] MEDS: OMEGA 3 1000MG PO SCH (09:08)
[2018-03-05] MEDS: PANTOPRAZOLE 40 MG/10 ML VIAL IVP SCH ×2 (09:11→20:19)
--- NOTE | 2018-03-05 14:40 | P.PN ---
Subjective Progress Note Date: 03/04/18 Patient is still experianceing abdominal pain, no NV. Abdominal pain is still there but improved per patient. Objective - Vital Signs Vital signs: Vital Signs Temp 98.7 F 03/05/18 14:30 Pulse 78 03/05/18 14:30 Resp 16 03/05/18 14:30 BP 145/86 03/05/18 14:30 Pulse Ox 92 L 03/05/18 14:30 Intake & Output 03/04/18 03/05/18 03/05/18 18:59 06:59 18:59 Intake Total 90 Balance 90 Intake: Oral 90 Other: Voiding Method Bedside Commode Bedside Commode Urinal Urinal # Voids 2 1 1 # Bowel Movements 1 - Constitutional General appearance: Present: cooperative - EENT Eyes: Present: PERRLA - Respiratory Details: nonlabored - Cardiovascular Rhythm: regular - Gastrointestinal Gastrointestinal Comment(s): soft, obese, tender to palpation mid epigastric - Psychiatric Psychiatric: Present: A&O x's 3 - Labs CBC & Chem 7: 03/04/18 12:39 03/04/18 12:39 Labs: Abnormal Lab Results - Last 24 Hours (Table) 03/04/18 Range/Units 15:00 Urine Protein 2+ H (Negative) Urine Ketones 2+ H (Negative) Urine Blood Moderate H (Negative) Urine WBC 11 H (0-5) /hpf Urine Bacteria Rare H (None) /hpf Urine Mucus Rare H (None) /hpf Microbiology - Last 24 Hours (Table) 03/01/18 16:30 Blood Culture - Preliminary Blood No Growth after 72 hours Assessment and Plan Assessment: Pancreatitis likely secondary to gallstones Plan: May start clears if pain is improved. Pancreatitis seems to be improving, plan is for lap aniya prior to discharge once pancreatitis has resolved. Patient remains higher risk secondary to morbid obesity
--- NOTE | 2018-03-05 14:41 | P.PN ---
Progress Note - Text Progress Note Date: 03/05/18 Patient was still experiencing pain today with clears, I told him to go slow with clears and if pain continues to stop. Plan is for lap aniya on if symptoms improve.
--- NOTE | 2018-03-05 16:57 | P.PN ---
Subjective Patient was admitted for gall stone pancreatitis. Patient's abdominal pain improved but still complaining of abdominal pain mostly in the lower quadrants rather and epigastric abdominal pain. Patient leukocytosis worsened liver enzymes improved. Patient will remain nothing by mouth tonight if his symptoms improve can be started on clear liquid diet tomorrow. Nausea improved. Discuss with surgery patient eventually will need a cholecystectomy because of the morbid obesity patient will be low to intermediate risk for surgery. I do not believe patient will need any further testing for preoperative clearance 03/03/2018 Patient's pain improved nausea improved but because of the severity of pancreatitis surgery is recommending him to be nothing by mouth. Patient is clinically doing well was started on clear liquid diet tomorrow. 03/04/2018 Patient does have significant symptomatic improvement. Patient will be started on clear liquid diet 03/05/2018 Patient is able to partially tolerate clear liquid diet because of which relieved him on clear liquid diet patient is scheduled for cholecystectomy on . Constitutional: Denied any fatigue denied any fever. Cardio vascular: denied any chest pain, palpitations Gastrointestinal denied any nausea vomiting Pulmonary: Denied any shortness of breath cough Neurologic denied any new focal deficits Objective - Vital Signs Vital signs: Vital Signs Temp 98.7 F 03/05/18 14:30 Pulse 78 03/05/18 14:30 Resp 16 03/05/18 14:30 BP 145/86 03/05/18 14:30 Pulse Ox 92 L 03/05/18 14:30 Intake & Output 03/04/18 03/05/18 03/05/18 18:59 06:59 18:59 Intake Total 890 Balance 890 Weight 175.994 kg Intake: IV 800 Sodium Chloride 0.9% 1, 800 000 ml @ 100 mls/hr IV . Q10H [facility] Rx#:[id number] Oral 90 Other: Voiding Method Bedside Commode Bedside Commode Urinal Urinal # Voids 2 1 1 # Bowel Movements 1 - Exam GENERAL: The patient is alert and oriented x3, not in any acute distress. Morbidly obese HEENT: Pupils are round and equally reacting to light. EOMI. No scleral icterus. No conjunctival pallor. Normocephalic, atraumatic. No pharyngeal erythema. No thyromegaly. CARDIOVASCULAR: S1 and S2 present. No murmurs, rubs, or gallops. PULMONARY: Chest is clear to auscultation, no wheezing or crackles. ABDOMEN: Soft, obese belly epigastric abdominal tenderness improved MUSCULOSKELETAL: No joint swelling or deformity. EXTREMITIES: No cyanosis, clubbing, or pedal edema. NEUROLOGICAL: Gross neurological examination did not reveal any focal deficits. SKIN: No rashes. - Labs CBC & Chem 7: 03/04/18 12:39 03/04/18 12:39 Labs: Microbiology - Last 24 Hours (Table) 03/01/18 16:30 Blood Culture - Preliminary Blood No Growth after 72 hours Assessment and Plan Plan: -Acute pancreatitis : Possibly gallstone pancreatitis, diet will be advanced. Patient is not an alcoholic , patient will remain on clear liquid diet and as he was having partial minimal abdominal pain when he tried to use clear liquid diet. -cholelithiasis low possibly of cholecystitis surgery valid the patient and a cholecystectomy on -Leukocytosis secondary to pancreatitis. -elevated liver enzymes repeat liver enzymes will be obtained probably due to passed gallstone, leukocytosis improving -Tachycardia: Secondary to pain patient was started on morphine IV for pain
[2018-03-06] MEDS: HYDROcodone/APAP 5-325MG 1 EACH TAB PO PRN ×4 (05:16→22:23)
[2018-03-06 08:30] LABS: Basophils % (A) 0 %; Eosinophils % (A) 0 %; HCT 41.8 % (39.0-53.0); HGB 14.3 gm/dL (13.0-17.5); Lymphocytes # (A) 0.6 k/uL (1.0-4.8); Lymphocytes % (A) 4 %; MCH 29.8 pg (25.0-35.0); MCHC 34.2 g/dL (31.0-37.0); Mean Platelet Volume 7.9; Monocytes % (A) 6 %; Neutrophils # (A) 14.6 k/uL (1.3-7.7); Neutrophils % (A) 88 %; Platelet Count 220 k/uL (150-450); RDW 12.6 % (11.5-15.5); WBC 16.5 k/uL (3.8-10.6)
[2018-03-06 09:02] LABS: ALT 51 U/L (21-72); AST 25 U/L (17-59); Albumin 2.7 g/dL (3.5-5.0); Alkaline Phosphatase 83 U/L (38-126); Anion Gap 12 mmol/L; Blood Urea Nitrogen 13 mg/dL (9-20); Calcium 8.1 mg/dL (8.4-10.2); Carbon Dioxide 27 mmol/L (22-30); Chloride 98 mmol/L (98-107); Glucose 106 mg/dL (74-99); Potassium 3.1 mmol/L (3.5-5.1); Sodium 137 mmol/L (137-145); Total Bilirubin 0.7 mg/dL (0.2-1.3); Total Protein 5.6 g/dL (6.3-8.2)
[2018-03-06] MEDS: OMEGA 3 1000MG PO SCH (10:10)
[2018-03-06] MEDS: SODIUM CHLORIDE 0.9% 1,000 ML IV SCH ×2 (10:12→18:11)
[2018-03-06] MEDS: NYSTATIN 100,000 UNIT/GM POWD 15 GM TOPICAL SCH ×3 (10:12→22:20)
[2018-03-06] MEDS: PANTOPRAZOLE 40 MG/10 ML VIAL IVP SCH ×2 (10:12→21:59)
[2018-03-06] MEDS ORDERED: Potassium Replacement Protocol 1 EACH MISC MISCELLANE PRN (15:10)
--- NOTE | 2018-03-06 15:10 | P.PN ---
Subjective Patient was admitted for gall stone pancreatitis. Patient's abdominal pain improved but still complaining of abdominal pain mostly in the lower quadrants rather and epigastric abdominal pain. Patient leukocytosis worsened liver enzymes improved. Patient will remain nothing by mouth tonight if his symptoms improve can be started on clear liquid diet tomorrow. Nausea improved. Discuss with surgery patient eventually will need a cholecystectomy because of the morbid obesity patient will be low to intermediate risk for surgery. I do not believe patient will need any further testing for preoperative clearance 03/03/2018 Patient's pain improved nausea improved but because of the severity of pancreatitis surgery is recommending him to be nothing by mouth. Patient is clinically doing well was started on clear liquid diet tomorrow. 03/04/2018 Patient does have significant symptomatic improvement. Patient will be started on clear liquid diet 03/05/2018 Patient is able to partially tolerate clear liquid diet because of which relieved him on clear liquid diet patient is scheduled for cholecystectomy on . 03/06/2018 No overnight events, patient's abdominal pain is better. Patient will go for cholecystectomy tomorrow Constitutional: Denied any fatigue denied any fever. Cardio vascular: denied any chest pain, palpitations Gastrointestinal denied any nausea vomiting Pulmonary: Denied any shortness of breath cough Neurologic denied any new focal deficits Objective - Vital Signs Vital signs: Vital Signs Temp 98.7 F 03/06/18 14:45 Pulse 101 H 03/06/18 14:45 Resp 16 03/06/18 14:45 BP 116/75 03/06/18 14:45 Pulse Ox 99 03/06/18 14:45 Intake & Output 03/05/18 03/06/18 03/06/18 18:59 06:59 18:59 Intake Total 1010 1450 Output Total 1 Balance 1010 1449 Weight 175.994 kg Intake: IV 800 1150 Sodium Chloride 0.9% 1, 800 1150 000 ml @ 100 mls/hr IV . Q10H [facility] Rx#:[id number] Oral 210 300 Output: Stool 1 Other: Voiding Method Bedside Commode Bedside Commode Bedside Commode Urinal Urinal Urinal # Voids 1 4 - Exam GENERAL: The patient is alert and oriented x3, not in any acute distress. Morbidly obese HEENT: Pupils are round and equally reacting to light. EOMI. No scleral icterus. No conjunctival pallor. Normocephalic, atraumatic. No pharyngeal erythema. No thyromegaly. CARDIOVASCULAR: S1 and S2 present. No murmurs, rubs, or gallops. PULMONARY: Chest is clear to auscultation, no wheezing or crackles. ABDOMEN: Soft, obese belly epigastric abdominal tenderness improved MUSCULOSKELETAL: No joint swelling or deformity. EXTREMITIES: No cyanosis, clubbing, or pedal edema. NEUROLOGICAL: Gross neurological examination did not reveal any focal deficits. SKIN: No rashes. - Labs CBC & Chem 7: 03/06/18 07:33 03/06/18 07:33 Labs: Abnormal Lab Results - Last 24 Hours (Table) 03/06/18 03/06/18 Range/Units 07:33 07:33 WBC 16.5 H (3.8-10.6) k/uL Neutrophils # 14.6 H (1.3-7.7) k/uL Lymphocytes # 0.6 L (1.0-4.8) k/uL Potassium 3.1 L (3.5-5.1) mmol/L Glucose 106 H (74-99) mg/dL Calcium 8.1 L (8.4-10.2) mg/dL Total Protein 5.6 L (6.3-8.2) g/dL Albumin 2.7 L (3.5-5.0) g/dL Microbiology - Last 24 Hours (Table) 03/01/18 16:30 Blood Culture - Preliminary Blood No Growth after 96 hours Assessment and Plan Plan: -Acute pancreatitis : Possibly gallstone pancreatitis, diet will be advanced. Patient is not an alcoholic , is able to tolerate clear liquid diet very well -cholelithiasis low possibly of cholecystitis surgery valid the patient and a cholecystectomy on -Leukocytosis secondary to pancreatitis. -elevated liver enzymes repeat liver enzymes will be obtained probably due to passed gallstone, leukocytosis improving -Tachycardia: Secondary to pain patient was started on morphine IV for pain
--- NOTE | 2018-03-06 15:41 | P.PN ---
<Vianey Machadoantoni Santiago - Last Filed: 03/06/18 15:35> Subjective Progress Note Date: 03/06/18 52-year-old male seen at the bedside up ambulating from the bathroom. Patient reports no dizziness lightheadedness no chest pain. Reports having loose stools. The white count is down to 16.5 labs reviewed potassium at 3.1 which replacement is being given. Patient states tolerating a clear liquid diet patient continues to report experiencing abdominal discomfort but is improving. Patient is scheduled for a lap cholecystectomy tomorrow. Patient is aware of the plan. Objective - Vital Signs Vital signs: Vital Signs Temp 98.7 F 03/06/18 14:45 Pulse 101 H 03/06/18 14:45 Resp 16 03/06/18 14:45 BP 116/75 03/06/18 14:45 Pulse Ox 99 03/06/18 14:45 Intake & Output 03/05/18 03/06/18 03/06/18 18:59 06:59 18:59 Intake Total 1010 1450 Output Total 1 Balance 1010 1449 Weight 175.994 kg Intake: IV 800 1150 Sodium Chloride 0.9% 1, 800 1150 000 ml @ 100 mls/hr IV . Q10H [facility] Rx#:[id number] Oral 210 300 Output: Stool 1 Other: Voiding Method Bedside Commode Bedside Commode Bedside Commode Urinal Urinal Urinal # Voids 1 4 2 - Exam Physical exam 52-year-old male morbidly obese sitting up in a chair oriented 3 appears in no acute distress Lungs adequate air movement bilaterally on room air Heart S1-S2 audible regular denying chest pain Abdomen obese mild tenderness nondistended bowel tones present loose stools no nausea no vomiting Extremities trace pedal edema bilaterally lower extremities - Labs CBC & Chem 7: 03/06/18 07:33 03/06/18 07:33 Labs: Abnormal Lab Results - Last 24 Hours (Table) 03/06/18 03/06/18 Range/Units 07:33 07:33 WBC 16.5 H (3.8-10.6) k/uL Neutrophils # 14.6 H (1.3-7.7) k/uL Lymphocytes # 0.6 L (1.0-4.8) k/uL Potassium 3.1 L (3.5-5.1) mmol/L Glucose 106 H (74-99) mg/dL Calcium 8.1 L (8.4-10.2) mg/dL Total Protein 5.6 L (6.3-8.2) g/dL Albumin 2.7 L (3.5-5.0) g/dL Microbiology - Last 24 Hours (Table) 03/01/18 16:30 Blood Culture - Preliminary Blood No Growth after 96 hours Assessment and Plan Assessment: Impression Acute Pancreatitis likely secondary to gallstones Super morbid obesity BMI 62 Cholelithiasis leukocytosis likely due to pancreatitis Hypokalemia Plan We'll schedule patient for a lap cholecystectomy tomorrow by Dr. ramsey Nothing by mouth after midnight Potassium to be replaced repeat labs in the morning Pain control DVT and GI prophylaxis IV fluid hydration Clear liquid diet The above impression and plan of care have been discussed and directed by signing physician. Ginette Machado nurse practitioner acting as scribe for signing physician. <Marino Ramsey - Last Filed: 03/06/18 18:10> Objective - Vital Signs Vital signs: Vital Signs Temp 98.7 F 03/06/18 14:45 Pulse 101 H 03/06/18 14:45 Resp 16 03/06/18 14:45 BP 116/75 03/06/18 14:45 Pulse Ox 99 03/06/18 14:45 Intake & Output 03/05/18 03/06/18 03/06/18 18:59 06:59 18:59 Intake Total 1010 1450 Output Total 1 Balance 1010 1449 Weight 175.994 kg Intake: IV 800 1150 Sodium Chloride 0.9% 1, 800 1150 000 ml @ 100 mls/hr IV . Q10H [facility] Rx#:[id number] Oral 210 300 Output: Stool 1 Other: Voiding Method Bedside Commode Bedside Commode Bedside Commode Urinal Urinal Urinal # Voids 1 4 2 - Labs CBC & Chem 7: 03/06/18 07:33 03/06/18 07:33 Labs: Abnormal Lab Results - Last 24 Hours (Table) 03/06/18 03/06/18 Range/Units 07:33 07:33 WBC 16.5 H (3.8-10.6) k/uL Neutrophils # 14.6 H (1.3-7.7) k/uL Lymphocytes # 0.6 L (1.0-4.8) k/uL Potassium 3.1 L (3.5-5.1) mmol/L Glucose 106 H (74-99) mg/dL Calcium 8.1 L (8.4-10.2) mg/dL Total Protein 5.6 L (6.3-8.2) g/dL Albumin 2.7 L (3.5-5.0) g/dL Microbiology - Last 24 Hours (Table) 03/01/18 16:30 Blood Culture - Preliminary Blood No Growth after 96 hours Assessment and Plan Plan: I agree with the above, patients pain is improved. Plan for lap aniya tomorrow . NPO after midnight
[2018-03-06] MEDS: POTASSIUM CHLORIDE 10 MEQ in WATER FOR INJECTION 1 100ML.BAG IVPB SCH ×3 (16:38→22:48)
[2018-03-07] MEDS: POTASSIUM CHLORIDE 10 MEQ in WATER FOR INJECTION 1 100ML.BAG IVPB SCH ×3 (01:24→12:33)
[2018-03-07] MEDS: SODIUM CHLORIDE 0.9% 1,000 ML IV SCH ×2 (01:26→12:33)
[2018-03-07 06:42] LABS: Basophils % (A) 0 %; Eosinophils # (A) 0.1 k/uL (0-0.7); Eosinophils % (A) 0 %; HCT 44.6 % (39.0-53.0); HGB 14.9 gm/dL (13.0-17.5); Lymphocytes # (A) 0.8 k/uL (1.0-4.8); Lymphocytes % (A) 5 %; MCH 29.6 pg (25.0-35.0); MCHC 33.4 g/dL (31.0-37.0); MCV 88.6 fL (80.0-100.0); Mean Platelet Volume 7.8; Monocytes % (A) 6 %; Neutrophils # (A) 14.8 k/uL (1.3-7.7); Neutrophils % (A) 87 %; Platelet Count 242 k/uL (150-450); RBC 5.04 m/uL (4.30-5.90); RDW 12.9 % (11.5-15.5)
[2018-03-07 06:52] LABS: Albumin 2.9 g/dL (3.5-5.0); Anion Gap 13 mmol/L; Calcium 8.4 mg/dL (8.4-10.2); Carbon Dioxide 26 mmol/L (22-30); Chloride 99 mmol/L (98-107); Glucose 118 mg/dL (74-99); Sodium 138 mmol/L (137-145); Total Bilirubin 0.8 mg/dL (0.2-1.3); Total Protein 6.1 g/dL (6.3-8.2)
[2018-03-07 06:57] LABS: ALT 40 U/L (21-72); AST 26 U/L (17-59); Alkaline Phosphatase 88 U/L (38-126); Blood Urea Nitrogen 9 mg/dL (9-20); Potassium 3.5 mmol/L (3.5-5.1)
[2018-03-07] MEDS: PANTOPRAZOLE 40 MG/10 ML VIAL IVP SCH ×2 (08:38→23:10)
[2018-03-07] MEDS: NYSTATIN 100,000 UNIT/GM POWD 15 GM TOPICAL SCH ×2 (08:40→23:11)
[2018-03-07] MEDS: OMEGA 3 1000MG PO SCH (08:40)
[2018-03-07] MEDS: HYDROcodone/APAP 5-325MG 1 EACH TAB PO PRN (08:47)
[2018-03-07] MEDS: LACTATED RINGERS 1,000 ML IV SCH (12:36)
[2018-03-07] MEDS ORDERED: IV FLUID CONTINUATION 1,000 ML IV ONE (13:25)
[2018-03-07] MEDS ORDERED: DEXAMETHASONE SOD PHOS (MDV) 100 MG/10 ML VIAL IV ONE (13:35)
[2018-03-07] MEDS ORDERED: PROPOFOL 10 MG/ML 20 ML VIAL IV ONE (14:04)
[2018-03-07] MEDS ORDERED: LIDOCAINE 1% INJ 10MG/ML (20 ML MDV) ONE (14:04)
[2018-03-07] MEDS ORDERED: GLYCOPYRROLATE 0.2 MG/ML 2 ML VIAL ONE (14:04)
[2018-03-07] MEDS ORDERED: NEOSTIGMINE 1 MG/ML 10 ML VIAL ONE (14:04)
[2018-03-07] MEDS ORDERED: ROCURONIUM BROMIDE 10 MG/ML 10 ML VIAL IV ONE (14:04)
[2018-03-07] MEDS ORDERED: fentaNYL (PF) 50 MCG/ML 2 ML AMP ONE (14:04)
[2018-03-07] MEDS ORDERED: SUCCINYLCHOLINE CHLORIDE VIAL 200 MG/10 ML VIAL IV ONE (14:04)
[2018-03-07] MEDS ORDERED: MIDAZOLAM 2 MG/2 ML VIAL ONE (14:04)
[2018-03-07] MEDS ORDERED: HEPARIN SODIUM,PORCINE 5,000 UNIT/ML 1 ML VIAL ONE (14:04)
[2018-03-07] MEDS ORDERED: SODIUM CHLORIDE 0.9% 50 ML with ceFAZolin 3,000 MG IV ONE ×2 (14:34)
[2018-03-07] MEDS ORDERED: LIDOCAINE 1%-EPI 1:100,000 30 ML VIAL SQ ONE (15:56)
[2018-03-07] MEDS ORDERED: BUPIVACAINE (PF) 0.5% 30 ML VIAL SQ ONE (15:56)
--- NOTE | 2018-03-07 16:39 | P.OP ---
Date of Procedure: 03/07/18 Preoperative Diagnosis: Gallstone pancreatitis Postoperative Diagnosis: Gallstone pancreatitis Procedure(s) Performed: Laparoscopic converted to open cholecystectomy Anesthesia: AGMA Surgeon: Marino Ramsey Drugless Doctor #1: Kurt Jade Estimated Blood Loss (ml): 200 Condition: stable Disposition: PACU Indications for Procedure: This is a 52-year-old male who presented initially to the hospital with abdominal pain was found to have pancreatitis. He had gallstones on his ultrasound and does not drink he is suspected to have gallstone pancreatitis. Over the course of several days his pancreatitis improved and his pain clinically improved. He was described the risks benefits and alternatives to laparoscopic possible open cholecystectomy. The patient is morbidly obese and I described to him that this would be a difficult procedure laparoscopically and he may not tolerate it and he may have an open procedure I also described to him the risks including bleeding infection damage surrounding tissue damage surrounding organs damage to common bile duct and need for further operation and he stated he understood these risks and agreed and consented to the procedure. Description of Procedure: Patient was brought into the operative suite remained in the supine position was prepped and draped in the usual sterile fashion he previously undergone general endotracheal anesthesia per Department of anesthesia timeout was performed correct patient correct procedure correct site was verified. 1 handbreadth below the xiphoid and 3 cm to the right of midline a 2 cm incision was made using a 12 mm Visiport the abdomen was entered under direct visualization and insufflated. Upon insufflation the patient began desaturating. Due to his very large and obese body habitus there was no space created by the insufflation despite the pressure being raised 18 there was very little space and his intra-abdominal contents were pressed up against the camera. At this time given that the patient was not tolerating insufflation and there was not sufficient working space with the insufflation to safely complete the procedure despite standing the patient up in reverse Trendelenburg decision was made to open. Right subcostal incision was made carried down to the muscle and fascia with the Bovie and abdomen was entered in the usual fashion. Patient began ventilating better and oxygen saturation improved once insufflation was relieved .Bookwalter retractor was placed and the bowel was packed exposing the gallbladder. The gallbladder was taken down from the liver bed using Bovie electrocautery. A right angle was used to dissect the fundus of the gallbladder until the cystic duct and cystic artery were isolated cystic artery was tied with 2-0 silk's and ligated. The cystic duct was then stapled across using 45 mm caldwell load Endo ADAN stapler. The gallbladder was removed and sent to pathology. Prior to this was inspected and noted to have only cystic duct staple leading directly into the gallbladder. The liver bed and surrounding area was inspected for hemostasis which was noted. All laps were removed and sponge count was correct. The peritoneum was then closed with 2-0 Vicryl in a running fashion the fascia was closed with 1 looped PDS. Subcu was then closed with a 2-0 Vicryl in a running fashion skin was closed with skin sherrie. The port site skin was closed with skin sherrie. All sponge instrument and needle counts were correct patient tolerated procedure well there are no apparent complications
[2018-03-07] MEDS ORDERED: fentaNYL (PF) 50 MCG/ML 2 ML AMP IVP ONE ×2 (17:14→17:23)
[2018-03-07] MEDS ORDERED: MORPHINE SULFATE 4 MG/ML SYRINGE IVP ONE ×2 (17:43→17:57)
[2018-03-07] MEDS ORDERED: SODIUM CHLORIDE 0.9% 1,000 ML IV ONE ×2 (18:05)
[2018-03-07] MEDS: HEPARIN SODIUM,PORCINE 5,000 UNIT/ML 1 ML VIAL SQ SCH (23:10)
[2018-03-08] MEDS: HYDROcodone/APAP 5-325MG 1 EACH TAB PO PRN ×4 (00:18→15:13)
[2018-03-08] MEDS: LACTATED RINGERS 1,000 ML IV SCH ×5 (00:19→19:44)
[2018-03-08 04:08] LABS: Basophils % (A) 0 %; Eosinophils % (A) 0 %; HCT 40.2 % (39.0-53.0); HGB 13.4 gm/dL (13.0-17.5); Lymphocytes # (A) 0.7 k/uL (1.0-4.8); Lymphocytes % (A) 4 %; MCH 29.6 pg (25.0-35.0); MCHC 33.4 g/dL (31.0-37.0); MCV 88.6 fL (80.0-100.0); Mean Platelet Volume 8.1; Monocytes # (A) 0.8 k/uL (0-1.0); Monocytes % (A) 5 %; Neutrophils # (A) 13.5 k/uL (1.3-7.7); Neutrophils % (A) 89 %; Platelet Count 220 k/uL (150-450); RBC 4.54 m/uL (4.30-5.90); RDW 12.8 % (11.5-15.5); WBC 15.1 k/uL (3.8-10.6)
[2018-03-08 04:18] LABS: ALT 49 U/L (21-72); AST 45 U/L (17-59); Albumin 2.4 g/dL (3.5-5.0); Alkaline Phosphatase 78 U/L (38-126); Anion Gap 11 mmol/L; Blood Urea Nitrogen 12 mg/dL (9-20); Calcium 7.9 mg/dL (8.4-10.2); Carbon Dioxide 28 mmol/L (22-30); Chloride 99 mmol/L (98-107); Glucose 117 mg/dL (74-99); Potassium 3.5 mmol/L (3.5-5.1); Sodium 138 mmol/L (137-145); Total Bilirubin 0.5 mg/dL (0.2-1.3); Total Protein 5.1 g/dL (6.3-8.2)
[2018-03-08] MEDS: PANTOPRAZOLE 40 MG/10 ML VIAL IVP SCH ×2 (08:49→19:44)
[2018-03-08] MEDS: HEPARIN SODIUM,PORCINE 5,000 UNIT/ML 1 ML VIAL SQ SCH ×2 (08:49→15:13)
[2018-03-08] MEDS: NYSTATIN 100,000 UNIT/GM POWD 15 GM TOPICAL SCH ×2 (10:35→19:44)
[2018-03-08] MEDS: OMEGA 3 1000MG PO SCH (10:35)
[2018-03-08] MEDS ORDERED: MORPHINE ORAL SOLN 10 MG/5 ML CUP PO PRN (11:25)
--- NOTE | 2018-03-08 11:36 | P.PN ---
Subjective Progress Note Date: 03/08/18 Postop day 1 lap converted to open cholecystectomy. Patient is doing well. His pain is all right upper quadrant and incisional in nature. He states that he is tolerating his clear liquids no nausea or vomiting. No fevers or chills overnight. No other complaints Objective - Vital Signs Vital signs: Vital Signs Temp 97.8 F 03/08/18 08:45 Pulse 79 03/08/18 08:45 Resp 16 03/08/18 08:45 BP 145/74 03/08/18 08:45 Pulse Ox 97 03/08/18 09:09 Intake & Output 03/07/18 03/08/18 03/08/18 18:59 06:59 18:59 Intake Total 1950 1464 25 Output Total 200 1060 200 Balance 1750 404 -175 Weight 175.994 kg Intake: IV 1950 Sodium Chloride 0.9% 1, 800 000 ml @ 100 mls/hr IV . Q10H [facility] Rx#:[id number] Intake, IV Titration 674 Amount Lactated Ringers 1,000 ml 674 @ 125 mls/hr IV .Q8H [facility] Rx#:[id number] Oral 790 25 Output: Urine 1060 200 Estimated Blood Loss 200 Other: Voiding Method Urinal # Voids 2 1 - Respiratory Details: Nonlabored - Cardiovascular Rhythm: regular - Gastrointestinal Gastrointestinal Comment(s): Soft nondistended obese incision clean dry and intact expected incisional tenderness - Psychiatric Psychiatric: Present: A&O x's 3 - Labs CBC & Chem 7: 03/08/18 03:30 03/08/18 03:30 Labs: Abnormal Lab Results - Last 24 Hours (Table) 03/08/18 03/08/18 Range/Units 03:30 03:30 WBC 15.1 H (3.8-10.6) k/uL Neutrophils # 13.5 H (1.3-7.7) k/uL Lymphocytes # 0.7 L (1.0-4.8) k/uL Glucose 117 H (74-99) mg/dL Calcium 7.9 L (8.4-10.2) mg/dL Total Protein 5.1 L (6.3-8.2) g/dL Albumin 2.4 L (3.5-5.0) g/dL Microbiology - Last 24 Hours (Table) 03/01/18 16:30 Blood Culture - Final Blood No Growth after 144 hours Assessment and Plan Assessment: Postop day 1 lap converted open cholecystectomy secondary to gallstone pancreatitis Plan: Patient is doing well. He may start on a low-fat diet. Continue ambulation continue incentive spirometry continue pain control.
[2018-03-08] MEDS: KETOROLAC 30 MG/ML 1 ML VIAL IVP SCH ×2 (13:03→18:52)
[2018-03-09] MEDS: KETOROLAC 30 MG/ML 1 ML VIAL IVP SCH ×4 (00:16→18:48)
[2018-03-09] MEDS: HEPARIN SODIUM,PORCINE 5,000 UNIT/ML 1 ML VIAL SQ SCH ×3 (00:16→16:39)
[2018-03-09] MEDS: LACTATED RINGERS 1,000 ML IV SCH ×4 (02:08→17:43)
[2018-03-09] MEDS: OMEGA 3 1000MG PO SCH (08:47)
[2018-03-09] MEDS: PANTOPRAZOLE 40 MG/10 ML VIAL IVP SCH (08:59)
[2018-03-09] MEDS: NYSTATIN 100,000 UNIT/GM POWD 15 GM TOPICAL SCH ×2 (08:59→19:20)
[2018-03-09 09:13] LABS: Basophils # (A) 0.1 k/uL (0-0.2); Basophils % (A) 0 %; Eosinophils # (A) 0.2 k/uL (0-0.7); Eosinophils % (A) 1 %; HCT 41.4 % (39.0-53.0); HGB 14.7 gm/dL (13.0-17.5); Lymphocytes % (A) 8 %; MCH 30.3 pg (25.0-35.0); MCHC 35.5 g/dL (31.0-37.0); MCV 85.2 fL (80.0-100.0); Mean Platelet Volume 8.6; Monocytes # (A) 0.5 k/uL (0-1.0); Monocytes % (A) 4 %; Neutrophils # (A) 10.8 k/uL (1.3-7.7); Neutrophils % (A) 85 %; Platelet Count 243 k/uL (150-450); RBC 4.86 m/uL (4.30-5.90); RDW 12.5 % (11.5-15.5); WBC 12.8 k/uL (3.8-10.6)
[2018-03-09 10:53] LABS: ALT 40 U/L (21-72); AST 34 U/L (17-59); Albumin 2.3 g/dL (3.5-5.0); Alkaline Phosphatase 74 U/L (38-126); Anion Gap 8 mmol/L; Blood Urea Nitrogen 16 mg/dL (9-20); Carbon Dioxide 29 mmol/L (22-30); Chloride 99 mmol/L (98-107); Glucose 130 mg/dL (74-99); Potassium 3.5 mmol/L (3.5-5.1); Sodium 136 mmol/L (137-145); Total Bilirubin 0.4 mg/dL (0.2-1.3); Total Protein 5.2 g/dL (6.3-8.2)
--- NOTE | 2018-03-09 12:57 | P.PN ---
Subjective Progress Note Date: 03/09/18 Principal diagnosis: Status post open cholecystectomy The patient's postoperative day 2 open cholecystectomy. He had had choledocholithiasis and gallstone pancreatitis. He is feeling better today. Still sore and difficult to get out of bed. He did ambulate in the [facility] 1 yesterday. He was able to tolerate her breakfast this morning but was not able to eat very much. He is urinating a lot. Objective - Vital Signs Vital signs: Vital Signs Temp 98.5 F 03/09/18 08:10 Pulse 70 03/09/18 08:10 Resp 16 03/09/18 08:10 BP 142/73 03/09/18 08:10 Pulse Ox 91 L 03/09/18 08:10 Intake & Output 03/08/18 03/09/18 03/09/18 18:59 06:59 18:59 Intake Total 1410 1957 Output Total 200 1131 Balance 1210 826 Weight 175.994 kg 122 kg Intake: Intake, IV Titration 1000 877 Amount Lactated Ringers 1,000 ml 1000 877 @ 125 mls/hr IV .Q8H [facility] Rx#:[id number] Oral 410 1080 Output: Urine 200 1130 Stool 1 Other: Voiding Method Bedside Commode Bedside Commode Urinal Urinal # Voids 1 4 - Constitutional General appearance: Present: cooperative, morbidly obese, no acute distress - Respiratory Respiratory: bilateral: CTA, diminished (Normally at the bases.) - Gastrointestinal General gastrointestinal: Present: decreased bowel sounds, soft Localized gastrointestinal: surgical scar: RLQ (Dressing is intact) - Labs CBC & Chem 7: 03/09/18 08:32 03/09/18 10:12 Labs: Abnormal Lab Results - Last 24 Hours (Table) 03/09/18 03/09/18 Range/Units 08:32 10:12 WBC 12.8 H (3.8-10.6) k/uL Neutrophils # 10.8 H (1.3-7.7) k/uL Sodium 136 L (137-145) mmol/L Glucose 130 H (74-99) mg/dL Calcium 8.0 L (8.4-10.2) mg/dL Total Protein 5.2 L (6.3-8.2) g/dL Albumin 2.3 L (3.5-5.0) g/dL Assessment and Plan (1) Cholelithiasis Current Visit: Yes Status: Acute Code(s): K80.20 - CALCULUS OF GALLBLADDER W /O CHOLECYSTITIS W/O OBSTRUCTION SNOMED Code(s): 890281463 (2) Choledocholithiasis Current Visit: Yes Status: Acute Code(s): K80.50 - CALCULUS OF BILE DUCT W/ O CHOLANGITIS OR CHOLECYST W/O OBST SNOMED Code(s): 363933733 Plan: We'll decrease the rate is IV fluids. Encourage activity and incentive spirometry. Progressing slowly.
[2018-03-09] MEDS ORDERED: MORPHINE ORAL SOLN 10 MG/5 ML CUP PO PRN (16:13)
--- NOTE | 2018-03-09 17:02 | P.PN ---
Subjective Patient was admitted for gall stone pancreatitis. Patient's abdominal pain improved but still complaining of abdominal pain mostly in the lower quadrants rather and epigastric abdominal pain. Patient leukocytosis worsened liver enzymes improved. Patient will remain nothing by mouth tonight if his symptoms improve can be started on clear liquid diet tomorrow. Nausea improved. Discuss with surgery patient eventually will need a cholecystectomy because of the morbid obesity patient will be low to intermediate risk for surgery. I do not believe patient will need any further testing for preoperative clearance 03/03/2018 Patient's pain improved nausea improved but because of the severity of pancreatitis surgery is recommending him to be nothing by mouth. Patient is clinically doing well was started on clear liquid diet tomorrow. 03/04/2018 Patient does have significant symptomatic improvement. Patient will be started on clear liquid diet 03/05/2018 Patient is able to partially tolerate clear liquid diet because of which relieved him on clear liquid diet patient is scheduled for cholecystectomy on . 03/06/2018 No overnight events, patient's abdominal pain is better. Patient will go for cholecystectomy tomorrow 03/09/2018 Patient is doing well postoperatively postoperative day 2, IV fluids will be discussed in your patient is on full liquid diet which is being continued. We will decrease the frequency and dose of morphine patient is on Toradol which will be continued. No overnight events patient did pass gas did not move his bowel yet. Patient's abdominal discomfort significant improved and minimal Constitutional: Denied any fatigue denied any fever. Cardio vascular: denied any chest pain, palpitations Gastrointestinal denied any nausea vomiting Pulmonary: Denied any shortness of breath cough Neurologic denied any new focal deficits Objective - Vital Signs Vital signs: Vital Signs Temp 98 F 03/09/18 14:40 Pulse 86 03/09/18 14:40 Resp 16 03/09/18 14:40 BP 113/71 03/09/18 14:40 Pulse Ox 94 L 03/09/18 14:40 Intake & Output 03/08/18 03/09/18 03/09/18 18:59 06:59 18:59 Intake Total 1410 1957 Output Total 200 1131 Balance 1210 826 Weight 175.994 kg 122 kg Intake: Intake, IV Titration 1000 877 Amount Lactated Ringers 1,000 ml 1000 877 @ 125 mls/hr IV .Q8H [facility] Rx#:[id number] Oral 410 1080 Output: Urine 200 1130 Stool 1 Other: Voiding Method Bedside Commode Bedside Commode Urinal Urinal # Voids 1 4 2 - Exam GENERAL: The patient is alert and oriented x3, not in any acute distress. Morbidly obese HEENT: Pupils are round and equally reacting to light. EOMI. No scleral icterus. No conjunctival pallor. Normocephalic, atraumatic. No pharyngeal erythema. No thyromegaly. CARDIOVASCULAR: S1 and S2 present. No murmurs, rubs, or gallops. PULMONARY: Chest is clear to auscultation, no wheezing or crackles. ABDOMEN: Soft, obese belly epigastric abdominal tenderness improved MUSCULOSKELETAL: No joint swelling or deformity. EXTREMITIES: No cyanosis, clubbing, or pedal edema. NEUROLOGICAL: Gross neurological examination did not reveal any focal deficits. SKIN: No rashes. - Labs CBC & Chem 7: 03/09/18 08:32 03/09/18 10:12 Labs: Abnormal Lab Results - Last 24 Hours (Table) 03/09/18 03/09/18 Range/Units 08:32 10:12 WBC 12.8 H (3.8-10.6) k/uL Neutrophils # 10.8 H (1.3-7.7) k/uL Sodium 136 L (137-145) mmol/L Glucose 130 H (74-99) mg/dL Calcium 8.0 L (8.4-10.2) mg/dL Total Protein 5.2 L (6.3-8.2) g/dL Albumin 2.3 L (3.5-5.0) g/dL Assessment and Plan Plan: -Acute pancreatitis : Possibly gallstone pancreatitis, patient is status post laparoscopic cholecystectomy not on any anti-medics at this point of time -cholelithiasis and gallstone pancreatitis -Leukocytosis secondary to pancreatitis. -elevated liver enzymes repeat liver enzymes will be obtained probably due to passed gallstone, leukocytosis improving
[2018-03-09] MEDS: PANTOPRAZOLE 40 MG TABLET PO SCH (19:20)
[2018-03-10] MEDS: HEPARIN SODIUM,PORCINE 5,000 UNIT/ML 1 ML VIAL SQ SCH ×4 (00:24→23:08)
[2018-03-10] MEDS: KETOROLAC 30 MG/ML 1 ML VIAL IVP SCH ×5 (00:24→23:08)
[2018-03-10] MEDS: LACTATED RINGERS 1,000 ML IV SCH ×3 (01:26→14:46)
[2018-03-10 07:47] LABS: Basophils # (A) 0.1 k/uL (0-0.2); Basophils % (A) 1 %; Eosinophils # (A) 0.1 k/uL (0-0.7); Eosinophils % (A) 1 %; HCT 40.7 % (39.0-53.0); HGB 14.6 gm/dL (13.0-17.5); Hyperchromasia Slight; Lymphocytes # (A) 1.1 k/uL (1.0-4.8); Lymphocytes % (A) 11 %; MCH 29.8 pg (25.0-35.0); MCHC 35.9 g/dL (31.0-37.0); MCV 83.2 fL (80.0-100.0); Mean Platelet Volume 7.4; Monocytes # (A) 0.5 k/uL (0-1.0); Monocytes % (A) 5 %; Neutrophils # (A) 7.8 k/uL (1.3-7.7); Neutrophils % (A) 80 %; Platelet Count 216 k/uL (150-450); RDW 12.5 % (11.5-15.5); WBC 9.8 k/uL (3.8-10.6)
[2018-03-10] MEDS: OMEGA 3 1000MG PO SCH (08:25)
[2018-03-10] MEDS: NYSTATIN 100,000 UNIT/GM POWD 15 GM TOPICAL SCH ×2 (08:25→20:05)
[2018-03-10] MEDS: PANTOPRAZOLE 40 MG TABLET PO SCH ×2 (08:28→18:08)
[2018-03-10 08:41] LABS: ALT 35 U/L (21-72); AST 34 U/L (17-59); Albumin 2.5 g/dL (3.5-5.0); Alkaline Phosphatase 69 U/L (38-126); Anion Gap 11 mmol/L; Blood Urea Nitrogen 15 mg/dL (9-20); Calcium 8.2 mg/dL (8.4-10.2); Carbon Dioxide 28 mmol/L (22-30); Chloride 100 mmol/L (98-107); Glucose 113 mg/dL (74-99); Potassium 3.2 mmol/L (3.5-5.1); Sodium 139 mmol/L (137-145); Total Bilirubin 0.5 mg/dL (0.2-1.3); Total Protein 5.7 g/dL (6.3-8.2)
[2018-03-10 09:31] VITALS: RESP 16
--- NOTE | 2018-03-10 13:24 | P.PN ---
Subjective Progress Note Date: 03/10/18 Principal diagnosis: Status post open cholecystectomy The patient seen on rounds. He is postop from open cholecystectomy. He's tolerating a diet. Having some difficulty getting in and out of bed. When he is walking he says it hurts and he can't straighten up. No nausea or vomiting. No chest pain or shortness of breath. Objective - Vital Signs Vital signs: Vital Signs Temp 98.0 F 03/10/18 08:17 Pulse 80 03/10/18 08:17 Resp 16 03/10/18 08:17 BP 139/84 03/10/18 08:17 Pulse Ox 96 03/10/18 08:17 Intake & Output 03/09/18 03/10/18 03/10/18 18:59 06:59 18:59 Intake Total 350 200 Balance 350 200 Intake: Oral 350 200 Other: Voiding Method Bedside Commode Toilet Toilet Urinal # Voids 2 2 # Bowel Movements 1 - Constitutional General appearance: Present: cooperative, morbidly obese - Respiratory Respiratory: bilateral: CTA - Gastrointestinal General gastrointestinal: Present: normal bowel sounds, soft Localized gastrointestinal: surgical scar: RUQ (Incisions healing well with some minimal ecchymosis) - Labs CBC & Chem 7: 03/10/18 07:28 03/10/18 08:07 Labs: Abnormal Lab Results - Last 24 Hours (Table) 03/10/18 03/10/18 Range/Units 07:28 08:07 Neutrophils # 7.8 H (1.3-7.7) k/uL Potassium 3.2 L (3.5-5.1) mmol/L Glucose 113 H (74-99) mg/dL Calcium 8.2 L (8.4-10.2) mg/dL Total Protein 5.7 L (6.3-8.2) g/dL Albumin 2.5 L (3.5-5.0) g/dL Assessment and Plan (1) Cholelithiasis Current Visit: Yes Status: Acute Code(s): K80.20 - CALCULUS OF GALLBLADDER W /O CHOLECYSTITIS W/O OBSTRUCTION SNOMED Code(s): 244854502 (2) Choledocholithiasis Current Visit: Yes Status: Acute Code(s): K80.50 - CALCULUS OF BILE DUCT W/ O CHOLANGITIS OR CHOLECYST W/O OBST SNOMED Code(s): 982563818 Plan: He is clinically improving. We'll have physical therapy see him to give him some compensatory options for getting out of bed. He does have family that lives with him who could assist.
[2018-03-10] MEDS ORDERED: POTASSIUM CHLORIDE ER 20 MEQ TAB.ER PO STA (13:25)
--- NOTE | 2018-03-10 15:06 | P.PN ---
Subjective Patient was admitted for gall stone pancreatitis. Patient's abdominal pain improved but still complaining of abdominal pain mostly in the lower quadrants rather and epigastric abdominal pain. Patient leukocytosis worsened liver enzymes improved. Patient will remain nothing by mouth tonight if his symptoms improve can be started on clear liquid diet tomorrow. Nausea improved. Discuss with surgery patient eventually will need a cholecystectomy because of the morbid obesity patient will be low to intermediate risk for surgery. I do not believe patient will need any further testing for preoperative clearance 03/03/2018 Patient's pain improved nausea improved but because of the severity of pancreatitis surgery is recommending him to be nothing by mouth. Patient is clinically doing well was started on clear liquid diet tomorrow. 03/04/2018 Patient does have significant symptomatic improvement. Patient will be started on clear liquid diet 03/05/2018 Patient is able to partially tolerate clear liquid diet because of which relieved him on clear liquid diet patient is scheduled for cholecystectomy on . 03/06/2018 No overnight events, patient's abdominal pain is better. Patient will go for cholecystectomy tomorrow 03/09/2018 Patient is doing well postoperatively postoperative day 2, IV fluids will be discussed in your patient is on full liquid diet which is being continued. We will decrease the frequency and dose of morphine patient is on Toradol which will be continued. No overnight events patient did pass gas did not move his bowel yet. Patient's abdominal discomfort significant improved and minimal 03/10/2018 Patient did have couple bowel movements yesterday which she says are glucose no bowel movement today patient is otherwise feeling better did not use any morphine since yesterday is only taking Toradol for pain Constitutional: Denied any fatigue denied any fever. Cardio vascular: denied any chest pain, palpitations Gastrointestinal denied any nausea vomiting Pulmonary: Denied any shortness of breath cough Neurologic denied any new focal deficits Objective - Vital Signs Vital signs: Vital Signs Temp 98.0 F 03/10/18 08:17 Pulse 80 03/10/18 08:17 Resp 16 03/10/18 08:17 BP 139/84 03/10/18 08:17 Pulse Ox 96 03/10/18 08:17 Intake & Output 03/09/18 03/10/18 03/10/18 18:59 06:59 18:59 Intake Total 350 200 Balance 350 200 Intake: Oral 350 200 Other: Voiding Method Bedside Commode Toilet Toilet Urinal # Voids 2 2 # Bowel Movements 1 - Exam GENERAL: The patient is alert and oriented x3, not in any acute distress. Morbidly obese HEENT: Pupils are round and equally reacting to light. EOMI. No scleral icterus. No conjunctival pallor. Normocephalic, atraumatic. No pharyngeal erythema. No thyromegaly. CARDIOVASCULAR: S1 and S2 present. No murmurs, rubs, or gallops. PULMONARY: Chest is clear to auscultation, no wheezing or crackles. ABDOMEN: Soft, obese belly epigastric abdominal tenderness improved MUSCULOSKELETAL: No joint swelling or deformity. EXTREMITIES: No cyanosis, clubbing, or pedal edema. NEUROLOGICAL: Gross neurological examination did not reveal any focal deficits. SKIN: No rashes. - Labs CBC & Chem 7: 03/10/18 07:28 03/10/18 08:07 Labs: Abnormal Lab Results - Last 24 Hours (Table) 03/10/18 03/10/18 Range/Units 07:28 08:07 Neutrophils # 7.8 H (1.3-7.7) k/uL Potassium 3.2 L (3.5-5.1) mmol/L Glucose 113 H (74-99) mg/dL Calcium 8.2 L (8.4-10.2) mg/dL Total Protein 5.7 L (6.3-8.2) g/dL Albumin 2.5 L (3.5-5.0) g/dL Assessment and Plan Plan: -Acute pancreatitis : Possibly gallstone pancreatitis, patient is status post laparoscopic cholecystectomy not on any anti-medics at this point of time. Patient is eating well did have bowel movements patient probably can be discharged tomorrow -cholelithiasis and gallstone pancreatitis -Leukocytosis secondary to pancreatitis. Improved now -elevated liver enzymes : Improved now
[2018-03-10] MEDS ORDERED: Magnesium Replacement Protocol 1 EACH MISC MISCELLANE PRN (22:52)
--- NOTE | 2018-03-10 23:03 | P.PN ---
Subjective Progress Note Date: 03/07/18 Progress Note being dictated for Dr. Lopez. Interval history:Patient was admitted for gall stone pancreatitis. Patient's abdominal pain improved but still complaining of abdominal pain mostly in the lower quadrants rather and epigastric abdominal pain. Patient leukocytosis worsened liver enzymes improved. Patient will remain nothing by mouth tonight if his symptoms improve can be started on clear liquid diet tomorrow. Nausea improved. Discuss with surgery patient eventually will need a cholecystectomy because of the morbid obesity patient will be low to intermediate risk for surgery. I do not believe patient will need any further testing for preoperative clearance 03/03/2018 Patient's pain improved nausea improved but because of the severity of pancreatitis surgery is recommending him to be nothing by mouth. Patient is clinically doing well was started on clear liquid diet tomorrow. 03/04/2018 Patient does have significant symptomatic improvement. Patient will be started on clear liquid diet 03/05/2018 Patient is able to partially tolerate clear liquid diet because of which relieved him on clear liquid diet patient is scheduled for cholecystectomy on . 03/06/2018 No overnight events, patient's abdominal pain is better. Patient will go for cholecystectomy tomorrow Constitutional: Denied any fatigue denied any fever. Cardio vascular: denied any chest pain, palpitations Gastrointestinal denied any nausea vomiting Pulmonary: Denied any shortness of breath cough Neurologic denied any new focal deficits 03/07/18 no overnight events, awaiting surgery today. T-max 100.4. WBC 17. Maintaining O2 sats of 96% on room air. Denies chest pain, palpitations or increasing shortness of breath. Objective - Vital Signs Vital signs: Vital Signs Temp 98 F 03/07/18 16:49 Pulse 99 03/07/18 17:04 Resp 30 H 03/07/18 17:04 BP 170/72 03/07/18 17:04 Pulse Ox 94 L 03/07/18 17:04 Intake & Output 03/06/18 03/07/18 03/07/18 18:59 06:59 18:59 Intake Total 2794 1600 Output Total 1 200 Balance 2793 1400 Intake: IV 802 1600 Sodium Chloride 0.9% 1, 802 800 000 ml @ 100 mls/hr IV . Q10H [facility] Rx#:[id number] Intake, IV Titration 862 Amount Potassium Chloride 10 meq 100 In Water For Injection 1 100ml.bag @ 100 mls/hr IVPB Q1H [facility] Rx#: [id number] Potassium Chloride 10 meq 100 In Water For Injection 1 100ml.bag @ 100 mls/hr IVPB Q1H [facility] Rx#: [id number] Sodium Chloride 0.9% 1, 662 000 ml @ 100 mls/hr IV . Q10H [facility] Rx#:[id number] Oral 1130 Output: Stool 1 Estimated Blood Loss 200 Other: Voiding Method Bedside Commode Toilet Urinal Urinal # Voids 2 1 # Bowel Movements 1 - Exam GENERAL: The patient is alert and oriented x3, not in any acute distress. HEENT: Pupils are round and equally reacting to light. EOMI. No scleral icterus. No conjunctival pallor. Normocephalic, atraumatic. No pharyngeal erythema. No thyromegaly. CARDIOVASCULAR: S1 and S2 present. No murmurs, rubs, or gallops. PULMONARY: Chest is clear to auscultation, no wheezing or crackles. ABDOMEN: Soft, obese belly epigastric abdominal tenderness improved MUSCULOSKELETAL: No joint swelling or deformity. EXTREMITIES: No cyanosis, clubbing, or pedal edema. NEUROLOGICAL: Gross neurological examination did not reveal any focal deficits. SKIN: No rashes. - Labs CBC & Chem 7: 03/10/18 07:28 03/10/18 08:07 Labs: Abnormal Lab Results - Last 24 Hours (Table) 03/06/18 03/07/18 03/07/18 Range/Units 20:55 06:26 06:26 WBC 17.0 H (3.8-10.6) k/uL Neutrophils # 14.8 H (1.3-7.7) k/uL Lymphocytes # 0.8 L (1.0-4.8) k/uL Potassium 3.3 L (3.5-5.1) mmol/L Glucose 118 H (74-99) mg/dL Total Protein 6.1 L (6.3-8.2) g/dL Albumin 2.9 L (3.5-5.0) g/dL Microbiology - Last 24 Hours (Table) 03/01/18 16:30 Blood Culture - Preliminary Blood No Growth after 120 hours Assessment and Plan Assessment: -Acute pancreatitis : Possibly gallstone pancreatitis, in a patient without alcohol abuse -cholelithiasis low possibly of cholecystitis, surgery pending -Leukocytosis secondary to pancreatitis. -elevated liver enzymes probably due to passed gallstone -Tachycardia: Secondary to pain patient was started on morphine IV for pain, currently resolved Plan: Continue on current medications, monitoring and symptomatic treatment. Awaiting surgery today. Aggressive pulmonary toileting, reinforced incentive spirometry. The impression and plan of care has been dictated as directed. : I performed a history and examination of this patient, discussed the same with the dictator. I agree with the dictator's note ,documented as a scribe. Any additional findings or plans will be noted.
[2018-03-10] MEDS: HYDROcodone/APAP 5-325MG 1 EACH TAB PO PRN (23:13)
--- NOTE | 2018-03-10 23:18 | P.PN ---
Subjective Progress Note Date: 03/08/18 Progress Note being dictated for Dr. Lopez. Interval history:Patient was admitted for gall stone pancreatitis. Patient's abdominal pain improved but still complaining of abdominal pain mostly in the lower quadrants rather and epigastric abdominal pain. Patient leukocytosis worsened liver enzymes improved. Patient will remain nothing by mouth tonight if his symptoms improve can be started on clear liquid diet tomorrow. Nausea improved. Discuss with surgery patient eventually will need a cholecystectomy because of the morbid obesity patient will be low to intermediate risk for surgery. I do not believe patient will need any further testing for preoperative clearance 03/03/2018 Patient's pain improved nausea improved but because of the severity of pancreatitis surgery is recommending him to be nothing by mouth. Patient is clinically doing well was started on clear liquid diet tomorrow. 03/04/2018 Patient does have significant symptomatic improvement. Patient will be started on clear liquid diet 03/05/2018 Patient is able to partially tolerate clear liquid diet because of which relieved him on clear liquid diet patient is scheduled for cholecystectomy on . 03/06/2018 No overnight events, patient's abdominal pain is better. Patient will go for cholecystectomy tomorrow Constitutional: Denied any fatigue denied any fever. Cardio vascular: denied any chest pain, palpitations Gastrointestinal denied any nausea vomiting Pulmonary: Denied any shortness of breath cough Neurologic denied any new focal deficits 03/07/18 no overnight events, awaiting surgery today. T-max 100.4. WBC 17. Maintaining O2 sats of 96% on room air. Denies chest pain, palpitations or increasing shortness of breath. 03/08/2018. Status post open cholecystectomy, postop day #1. Gallbladder pathology pending. Tolerated procedure well. Tolerating clear liquid diet with no nausea or vomiting. Incisional pain controlled. Afebrile, WBC decreased to 15.1. Objective - Vital Signs Vital signs: Vital Signs Temp 98.6 F 03/10/18 20:11 Pulse 58 L 03/10/18 20:11 Resp 16 03/10/18 20:11 BP 125/72 03/10/18 20:11 Pulse Ox 91 L 03/10/18 20:11 Intake & Output 03/10/18 03/10/18 03/11/18 06:59 18:59 06:59 Intake Total 350 200 350 Balance 350 200 350 Intake: Oral 350 200 350 Other: Voiding Method Toilet Toilet Toilet # Voids 2 2 1 # Bowel Movements 1 1 - Exam GENERAL: VS: Temperature 97.8 oral, pulse 79, respiratory rate 16, blood pressure 145/74, O2 sat 97% on room air. alert and oriented x3, not in any acute distress. HEENT: Pupils are round and equally reacting to light. EOMI. No scleral icterus. No conjunctival pallor. Normocephalic, atraumatic. CARDIOVASCULAR: S1 and S2 present. No murmurs, rubs, or gallops. PULMONARY: Chest is clear to auscultation, no wheezing or crackles. ABDOMEN: Soft, status post surgery, hypoactive bowel sounds MUSCULOSKELETAL: No joint swelling or deformity. EXTREMITIES: No cyanosis, clubbing, or pedal edema. NEUROLOGICAL: Gross neurological examination did not reveal any focal deficits. SKIN: No rashes. - Labs CBC & Chem 7: 03/10/18 07:28 03/10/18 08:07 Labs: Abnormal Lab Results - Last 24 Hours (Table) 03/10/18 03/10/18 Range/Units 07:28 08:07 Neutrophils # 7.8 H (1.3-7.7) k/uL Potassium 3.2 L (3.5-5.1) mmol/L Glucose 113 H (74-99) mg/dL Calcium 8.2 L (8.4-10.2) mg/dL Total Protein 5.7 L (6.3-8.2) g/dL Albumin 2.5 L (3.5-5.0) g/dL Assessment and Plan Assessment: -Acute pancreatitis : Possibly gallstone pancreatitis, patient is status post open cholecystectomy -cholelithiasis and gallstone pancreatitis -Leukocytosis secondary to pancreatitis. -elevated liver enzymes probably due to passed gallstone, leukocytosis improving Plan: Continue on current medications, monitoring and symptomatic treatment. Aggressive pulmonary toileting, reinforced incentive spirometry. Increase ambulation as tolerated. Pain management and diet advancement as per surgery. The impression and plan of care has been dictated as directed. : I performed a history and examination of this patient, discussed the same with the dictator. I agree with the dictator's note ,documented as a scribe. Any additional findings or plans will be noted.
[2018-03-11] MEDS: KETOROLAC 30 MG/ML 1 ML VIAL IVP SCH ×3 (01:36→11:14)
[2018-03-11] MEDS: LACTATED RINGERS 1,000 ML IV SCH ×2 (01:36→09:03)
[2018-03-11] MEDS: HYDROcodone/APAP 5-325MG 1 EACH TAB PO PRN (05:53)
[2018-03-11 06:52] LABS: Basophils % (A) 0 %; Eosinophils # (A) 0.1 k/uL (0-0.7); Eosinophils % (A) 1 %; HGB 13.9 gm/dL (13.0-17.5); Lymphocytes # (A) 1.4 k/uL (1.0-4.8); Lymphocytes % (A) 13 %; MCV 87.7 fL (80.0-100.0); Mean Platelet Volume 7.5; Monocytes # (A) 0.5 k/uL (0-1.0); Monocytes % (A) 5 %; Neutrophils # (A) 7.8 k/uL (1.3-7.7); Neutrophils % (A) 78 %; Platelet Count 222 k/uL (150-450); RBC 4.79 m/uL (4.30-5.90); RDW 12.6 % (11.5-15.5)
[2018-03-11 07:03] LABS: ALT 36 U/L (21-72); AST 34 U/L (17-59); Albumin 2.7 g/dL (3.5-5.0); Alkaline Phosphatase 78 U/L (38-126); Anion Gap 9 mmol/L; Blood Urea Nitrogen 14 mg/dL (9-20); Calcium 8.3 mg/dL (8.4-10.2); Carbon Dioxide 30 mmol/L (22-30); Chloride 101 mmol/L (98-107); Glucose 97 mg/dL (74-99); Magnesium 1.9 mg/dL (1.6-2.3); Potassium 3.3 mmol/L (3.5-5.1); Sodium 140 mmol/L (137-145); Total Bilirubin 0.4 mg/dL (0.2-1.3); Total Protein 5.9 g/dL (6.3-8.2)
[2018-03-11] MEDS: HEPARIN SODIUM,PORCINE 5,000 UNIT/ML 1 ML VIAL SQ SCH (08:13)
[2018-03-11] MEDS: OMEGA 3 1000MG PO SCH (08:14)
[2018-03-11] MEDS: NYSTATIN 100,000 UNIT/GM POWD 15 GM TOPICAL SCH (08:14)
[2018-03-11] MEDS: PANTOPRAZOLE 40 MG TABLET PO SCH (08:14)
[2018-03-11 09:05] VITALS: PULSE 76
[2018-03-11 10:33] VITALS: BMI 43.4
--- NOTE | 2018-03-11 13:05 | P.PN ---
Subjective Progress Note Date: 03/11/18 Postop day 4 lap converted to open cholecystectomy. Patient is doing well. tolerating diet, pain improved. Objective - Vital Signs Vital signs: Vital Signs Temp 97.8 F 03/11/18 07:00 Pulse 76 03/11/18 07:00 Resp 16 03/11/18 02:15 BP 131/70 03/11/18 07:00 Pulse Ox 97 03/11/18 07:00 Intake & Output 03/10/18 03/11/18 03/11/18 18:59 06:59 18:59 Intake Total 200 350 237 Balance 200 350 237 Weight 122 kg Intake: Oral 200 350 237 Other: Voiding Method Toilet Toilet Toilet # Voids 2 2 # Bowel Movements 1 - Constitutional General appearance: Present: cooperative - Respiratory Details: nonlabored - Cardiovascular Rhythm: regular - Gastrointestinal Gastrointestinal Comment(s): s/nd/incisional TTP. incision CDI - Labs CBC & Chem 7: 03/11/18 06:24 03/11/18 06:24 Labs: Abnormal Lab Results - Last 24 Hours (Table) 03/11/18 03/11/18 Range/Units 06:24 06:24 Neutrophils # 7.8 H (1.3-7.7) k/uL Potassium 3.3 L (3.5-5.1) mmol/L Calcium 8.3 L (8.4-10.2) mg/dL Total Protein 5.9 L (6.3-8.2) g/dL Albumin 2.7 L (3.5-5.0) g/dL Assessment and Plan Assessment: Postop day 4 lap converted open cholecystectomy secondary to gallstone pancreatitis Plan: Patient is doing well tolerating a diet. His pain is well controlled. He may be discharged with plans for follow up in my office in 1-2 weeks.
[2018-03-11 15:22] VITALS: BP 123/86; TEMP 97.4
--- NOTE | 2018-03-11 17:09 | P.DS ---
Providers Date of admission: 03/01/18 17:28 Expected date of discharge: 03/11/18 Attending physician: Zabrina Lopez Consults: 03/01/18 17:09 Consult Physician Stat Consulting Provider: Marino Ramsey Consult Reason/Comments: Choledocholithiasis Do you want consulting provider notified?: Yes [facility] Course: Final Diagnoses: -Acute pancreatitis : Possibly gallstone pancreatitis, patient is status post open cholecystectomy -cholelithiasis and gallstone pancreatitis -Leukocytosis secondary to pancreatitis. -elevated liver enzymes probably due to passed gallstone, leukocytosis improved Hospital course:Patient was admitted for gall stone pancreatitis. Patient leukocytosis worsened liver enzymes improved. Evaluated by surgery. Underwent a laparoscopic converted to open cholecystectomy .tolerated procedure well. Gallbladder specimen culture reporting chronic cholecystitis, cholesterolosis. Significant clinical improvement. Patient has been cleared by surgery for discharge. Patient is being discharged home in a stable condition with guarded prognosis. GENERAL: VSS, alert and oriented 3, no acute distress CARDIOVASCULAR: S1 and S2 present. No murmurs, rubs, or gallops. PULMONARY: Chest is clear to auscultation, no wheezing or crackles. ABDOMEN: Soft, status post surgery, positive bowel sounds NEUROLOGICAL: Gross neurological examination did not reveal any focal deficits. The impression and plan of care has been dictated as directed. : I performed a history and examination of this patient, discussed the same with the dictator. I agree with the dictator's note ,documented as a scribe. Any additional findings or plans will be noted. Time taken: 35 minutes Patient Condition at Discharge: Stable Plan - Discharge Summary Discharge Rx Participant: Yes New Discharge Prescriptions: New HYDROcodone/APAP 5-325MG [[place] 5-325] 1 tab PO Q6HR PRN #30 tab PRN Reason: Pain Nystatin 100,000 Unit/gm Powd [Mycostatin Powder] 1 applic TOPICAL BID applic Omeprazole [PriLOSEC] 20 mg PO AC-BID #28 cap Continue [place]-3 Fatty Acids/Fish Oil [Fish Oil 1,000 mg Softgel] 1 cap PO DAILY Discharge Medication List [place]-3 Fatty Acids/Fish Oil [Fish Oil 1,000 mg Softgel] 1 cap PO DAILY [History] HYDROcodone/APAP 5-325MG [[place] 5-325] 1 tab PO Q6HR PRN #30 tab 03/11/18 [Rx] Nystatin 100,000 Unit/gm Powd [Mycostatin Powder] 1 applic TOPICAL BID applic 03/11/18 [Rx] Omeprazole [PriLOSEC] 20 mg PO AC-BID #28 cap 03/11/18 [Rx] Follow up Appointment(s)/Referral(s): Marino Ramsey DO [Doctor of Osteopathic Medicine] - 03/20/18 3:45 pm [facility], [NON-STAFF] - Koby Miranda DO [Primary Care Provider] - 03/15/18 1:00 pm Ambulatory/Diagnostic Orders: Basic Metabolic Panel [LAB.AMB] Time Frame: 3 Days, Location: Determined By Patient Patient Instructions/Handouts: *Surgery [facility] - Laparoscopic Cholecystectomy Discharge Instructions Activity/Diet/Wound Care/Special Instructions: Zestoretic currently on hold, reevaluate at follow-up visit with PCP Discharge Disposition: HOME SELF-CARE
== END 2018-03-11 16:15 | disposition home or self-care (01) | DRG 415 ==
LOC: EC 13:34 → 3SUR 17:28
PROVIDERS: ADMIT Internal Medicine; ATTEND Internal Medicine
PROC: 0FJ44ZZ Inspection of Gallbladder, Percutaneous Endoscopic Approach (ICD-10-PCS; 2018-03-07)
PROC: 0FT40ZZ Resection of Gallbladder, Open Approach (ICD-10-PCS; principal; 2018-03-07 14:30)
DX: K85.10 Biliary acute pancreatitis without necrosis or infection (principal); Z68.44 Body mass index [BMI] 60.0-69.9, adult; E66.01 Morbid (severe) obesity due to excess calories; K80.64 Calculus of gallbladder and bile duct with chronic cholecystitis without obstruction; R00.0 Tachycardia, unspecified; R74.8 Abnormal levels of other serum enzymes; E87.6 Hypokalemia; Z53.31 Laparoscopic surgical procedure converted to open procedure; Z79.899 Other long term (current) drug therapy
CPT/HCPCS: 36415; 76705; 80053; 80061; 81001; 82150; 82570; 83605; 83690; 83735; 84132; 85025; 85027; 87040; 88304; 94760; 96361; 96365; 96375; 99285

== ENCOUNTER → 2018-03-01 | Outpatient (CLI) | payer OTHER ==
--- NOTE | 2018-03-01 10:41 | XR ---
EXAMINATION TYPE: XR abdomen 2V DATE OF EXAM: 03/01/2018 CLINICAL DATA: 52-year-old male abdominal pain and vomiting, [facility] COMPARISON: None FINDINGS: The upright view does not include the domes of the diaphragms to assess adequately for free air. No dilated small bowel or air-fluid levels are seen. Nonspecific air within right sided abdominal bow el loops. No significant stool burden. No suspicious calcifications seen. IMPRESSION: Nonspecific bowel gas pattern. No significant stool burden. Domes of the diaphragm are excluded from view limiting assessment for free air.
== END | disposition home or self-care (01) ==
LOC: RADXRYALE 08:44
PROVIDERS: ATTEND Physician Assistant Medical
DX: R10.84 Generalized abdominal pain (principal); R11.10 Vomiting, unspecified
CPT/HCPCS: 74019

== ENCOUNTER 2018-07-06 08:18 | Emergency (ER) | payer OTHER ==
--- NOTE | 2018-07-06 08:35 | ED ---
General Adult HPI - General Chief complaint: Recheck/Abnormal Lab/Rx Stated complaint: post op pain Time Seen by Provider: 07/06/18 08:28 Source: patient, RN notes reviewed, old records reviewed Mode of arrival: ambulatory Limitations: no limitations - History of Present Illness Initial comments: Patient 53-year-old male status post cholecystectomy, 4 months, presented to the emergency room today with a chief complaint of right upper quadrant pain over the last month. He states over the past month he's been experiencing some discomfort and pain to the right upper quadrant around the incision line. Patient denies any complaints or symptoms. Patient denies any recent fever, chills, shortness of breath, chest pain, back pain, nausea or vomiting, numbness or tingling, dysuria or hematuria, constipation or diarrhea, headaches or visual changes, or any other complaints. - Related Data Home Medications Medication Instructions Recorded Confirmed [place]-3 Fatty Acids/Fish Oil [Fish 1 cap PO DAILY 03/01/18 03/01/18 Oil 1,000 mg Softgel] Previous Rx's Medication Instructions Recorded HYDROcodone/APAP 5-325MG [[place] 1 tab PO Q6HR PRN #30 tab 03/11/18 5-325] Nystatin 100,000 Unit/gm Powd 1 applic TOPICAL BID applic 03/11/18 [Mycostatin Powder] Omeprazole [PriLOSEC] 20 mg PO AC-BID #28 cap 03/11/18 Allergies Allergy/AdvReac Type Severity Reaction Status Date / Time No Known Allergies Allergy Verified 07/06/18 08:22 Review of Systems ROS Statement: Those systems with pertinent positive or pertinent negative responses have been documented in the HPI. ROS Other: All systems not noted in ROS Statement are negative. Past Medical History Past Medical History: Hyperlipidemia, Hypertension History of Any Multi-Drug Resistant Organisms: None Reported Past Surgical History: Cholecystectomy Past Psychological History: No Psychological Hx Reported Smoking Status: Never smoker Past Alcohol Use History: None Reported Past Drug Use History: None Reported - Past Family History Father History Unknown: Yes Mother History Unknown: Yes General Exam - General Exam Comments Initial Comments: General: The patient is awake and alert, in no distress, and does not appear acutely ill. Eye: Pupils are equal, round and reactive to light, extra-ocular movements are intact. No nystagmus. There is normal conjunctiva bilaterally. No signs of icterus. Ears, nose, mouth and throat: There are moist mucous membranes and no oral lesions. Neck: The neck is supple, there is no tenderness or JVD. Cardiovascular: There is a regular rate and rhythm. No murmur, rub or gallop is appreciated. Respiratory: Lungs are clear to auscultation, respirations are non-labored, breath sounds are equal. No wheezes, stridor, rales, or rhonchi. Gastrointestinal: Abdominal incisions healing well. No sign of infection. Abdomen soft on palpation. Patient mild discomfort in right upper quadrant. No rebound, guarding Musculoskeletal: Normal ROM, no tenderness. Strength 5/5. Sensation intact. Pulses equal bilaterally 2+. Neurological: A&O x 3. CN II-XII intact, There are no obvious motor or sensory deficits. Coordination appears grossly intact. Speech is normal. Skin: Skin is warm and dry and no rashes or lesions are noted. Psychiatric: Cooperative, appropriate mood & affect, normal judgment. Limitations: no limitations Course Vital Signs 07/06/18 08:19 Temperature 99.0 F Pulse Rate 90 Respiratory 20 Rate Blood Pressure 144/96 O2 Sat by Pulse 100 Oximetry Medical Decision Making - Medical Decision Making Patient reexamined at this time shows no signs of distress. His labs been reviewed and are unremarkable. Patient did have a cholecystectomy. Last month as well assome discomfort over the incision site. He is advised follow-up with surgeon this is no sign of infection at this time. - Lab Data Result diagrams: 07/06/18 08:54 07/06/18 08:54 Lab Results 07/06/18 07/06/18 07/06/18 Range/Units 08:54 08:54 09:46 WBC 8.6 (3.8-10.6) k/uL RBC 5.54 (4.30-5.90) m/uL Hgb 16.3 (13.0-17.5) gm/dL Hct 46.2 (39.0-53.0) % MCV 83.3 D (80.0-100.0) fL MCH 29.4 (25.0-35.0) pg MCHC 35.3 (31.0-37.0) g/dL RDW 12.6 (11.5-15.5) % Plt Count 276 (150-450) k/uL Neutrophils % 72 % Lymphocytes % 19 % Monocytes % 5 % Eosinophils % 2 % Basophils % 1 % Neutrophils # 6.2 (1.3-7.7) k/uL Lymphocytes # 1.7 (1.0-4.8) k/uL Monocytes # 0.5 (0-1.0) k/uL Eosinophils # 0.2 (0-0.7) k/uL Basophils # 0.0 (0-0.2) k/uL Sodium 136 L (137-145) mmol/L Potassium 3.9 (3.5-5.1) mmol/L Chloride 100 (98-107) mmol/L Carbon Dioxide 28 (22-30) mmol/L Anion Gap 8 mmol/L BUN 10 (9-20) mg/dL Creatinine 0.77 (0.66-1.25) mg/dL Est GFR (CKD-EPI)AfAm >90 (>60 ml/min/1.73 sqM) Est GFR (CKD-EPI)NonAf >90 (>60 ml/min/1.73 sqM) Glucose 106 H (74-99) mg/dL Calcium 9.3 (8.4-10.2) mg/dL Total Bilirubin 1.1 (0.2-1.3) mg/dL AST 46 (17-59) U/L ALT 46 (21-72) U/L Alkaline Phosphatase 65 (38-126) U/L Total Protein 7.7 (6.3-8.2) g/dL Albumin 4.1 (3.5-5.0) g/dL Amylase 40 (30-110) U/L Lipase 22 L (23-300) U/L Urine Color Yellow Urine Appearance Clear (Clear) Urine pH 6.0 (5.0-8.0) Ur Specific [place] 1.010 (1.001-1.035) Urine Protein Negative (Negative) Urine Glucose (UA) Negative (Negative) Urine Ketones Negative (Negative) Urine Blood Negative (Negative) Urine Nitrite Negative (Negative) Urine Bilirubin Negative (Negative) Urine Urobilinogen <2.0 (<2.0) mg/dL Ur Leukocyte Esterase Negative (Negative) Disposition Clinical Impression: Abdominal pain Disposition: HOME SELF-CARE Condition: Good Instructions: Abdominal Pain (ED) Additional Instructions: Please follow-up with surgeon in the next 2-5 days of symptoms have not improved. Please return to emergency room if the symptoms increase or worsen or for any other concerns. Is patient prescribed a controlled substance at d/c from ED?: No Referrals: Koby Miranda DO [Primary Care Provider] - 1-2 days Marino Ramsey DO [Doctor of Osteopathic Medicine] - 1-2 days Time of Disposition: 10:28
[2018-07-06 09:03] LABS: Basophils % (A) 1 %; Eosinophils # (A) 0.2 k/uL (0-0.7); Eosinophils % (A) 2 %; HCT 46.2 % (39.0-53.0); HGB 16.3 gm/dL (13.0-17.5); Lymphocytes # (A) 1.7 k/uL (1.0-4.8); Lymphocytes % (A) 19 %; MCH 29.4 pg (25.0-35.0); MCHC 35.3 g/dL (31.0-37.0); Mean Platelet Volume 6.8; Monocytes # (A) 0.5 k/uL (0-1.0); Monocytes % (A) 5 %; Neutrophils # (A) 6.2 k/uL (1.3-7.7); Neutrophils % (A) 72 %; Platelet Count 276 k/uL (150-450); RBC 5.54 m/uL (4.30-5.90); RDW 12.6 % (11.5-15.5); WBC 8.6 k/uL (3.8-10.6)
[2018-07-06 09:13] LABS: MCV 83.3 fL (80.0-100.0)
[2018-07-06 09:14] LABS: ALT 46 U/L (21-72); AST 46 U/L (17-59); Albumin 4.1 g/dL (3.5-5.0); Alkaline Phosphatase 65 U/L (38-126); Amylase 40 U/L (30-110); Anion Gap 8 mmol/L; Blood Urea Nitrogen 10 mg/dL (9-20); Calcium 9.3 mg/dL (8.4-10.2); Carbon Dioxide 28 mmol/L (22-30); Chloride 100 mmol/L (98-107); Glucose 106 mg/dL (74-99); Lipase 22 U/L (23-300); Sodium 136 mmol/L (137-145); Total Bilirubin 1.1 mg/dL (0.2-1.3); Total Protein 7.7 g/dL (6.3-8.2)
[2018-07-06 09:22] LABS: Potassium 3.9 mmol/L (3.5-5.1)
--- NOTE | 2018-07-06 09:22 | XR ---
EXAMINATION TYPE: XR KUB , 4 VIEWS DATE OF EXAM ORDERED: 07/06/2018 HISTORY: Right sided abdominal pain. COMPARISON: None. FINDINGS: The lung bases are clear. Within the abdomen, the abdominal gas pattern is normal. There is no evidence of obstruction or free air. No unusual calcifications are seen. There appears to be contrast within the bladder from a recent contrast examination. IMPRESSION: NO ACUTE INTRA-ABDOMINAL ABNORMALITY.
[2018-07-06 09:55] LABS: Appearance,Urine Clear (Clear); Bilirubin,Urine Negative (Negative); Blood,Urine Negative (Negative); Color,Urine Yellow; Glucose,Urine (UA) Negative (Negative); Ketones,Urine Negative (Negative); Leukocyte Esterase,Urine Negative (Negative); Nitrite,Urine Negative (Negative); Protein,Urine Negative (Negative); Urobilinogen,Urine <2.0 mg/dL (<2.0)
[2018-07-06 10:48] VITALS: BP 168/70; PULSE 78; RESP 16; TEMP 97.8
== END 2018-07-06 10:47 | disposition home or self-care (01) ==
LOC: EC 08:18
DX: R10.11 Right upper quadrant pain (principal); Z79.899 Other long term (current) drug therapy; Z90.49 Acquired absence of other specified parts of digestive tract
CPT/HCPCS: 36415; 74018; 80053; 81003; 82150; 83690; 85025; 99284

== ENCOUNTER 2018-07-08 21:50 | Emergency (ER) | payer OTHER ==
[2018-07-08] MEDS ORDERED: MORPHINE SULFATE 4 MG/ML SYRINGE IV STA (23:16)
[2018-07-08] MEDS ORDERED: PANTOPRAZOLE 40 MG/10 ML VIAL IVP STA (23:16)
[2018-07-08] MEDS ORDERED: ONDANSETRON 4 MG/2 ML VIAL IVP STA (23:16)
[2018-07-08] MEDS ORDERED: SODIUM CHLORIDE 0.9% 1,000 ML IV STA (23:16)
[2018-07-08 23:56] LABS: Basophils % (A) 0 %; Eosinophils # (A) 0.1 k/uL (0-0.7); Eosinophils % (A) 1 %; HCT 46.6 % (39.0-53.0); HGB 16.5 gm/dL (13.0-17.5); Lymphocytes # (A) 1.4 k/uL (1.0-4.8); Lymphocytes % (A) 12 %; MCH 29.6 pg (25.0-35.0); MCHC 35.4 g/dL (31.0-37.0); MCV 83.5 fL (80.0-100.0); Monocytes # (A) 0.6 k/uL (0-1.0); Monocytes % (A) 6 %; Neutrophils # (A) 9.2 k/uL (1.3-7.7); Neutrophils % (A) 80 %; Platelet Count 262 k/uL (150-450); RBC 5.58 m/uL (4.30-5.90); RDW 12.8 % (11.5-15.5); WBC 11.6 k/uL (3.8-10.6)
[2018-07-09 00:04] VITALS: RESP 18
[2018-07-09 00:12] LABS: ALT 51 U/L (21-72); AST 40 U/L (17-59); Albumin 4.4 g/dL (3.5-5.0); Alkaline Phosphatase 70 U/L (38-126); Amylase 42 U/L (30-110); Anion Gap 14 mmol/L; Blood Urea Nitrogen 12 mg/dL (9-20); Calcium 9.7 mg/dL (8.4-10.2); Carbon Dioxide 21 mmol/L (22-30); Chloride 101 mmol/L (98-107); Glucose 117 mg/dL (74-99); Lipase 28 U/L (23-300); Potassium 3.3 mmol/L (3.5-5.1); Sodium 136 mmol/L (137-145); Total Bilirubin 1.2 mg/dL (0.2-1.3); Total Protein 8.1 g/dL (6.3-8.2)
--- NOTE | 2018-07-09 00:14 | ED ---
General Adult HPI - General Chief complaint: Abdominal Pain Stated complaint: incision/abdominal pain-revisit Time Seen by Provider: 07/08/18 22:52 Source: patient, RN notes reviewed, old records reviewed Mode of arrival: ambulatory Limitations: no limitations - History of Present Illness Initial comments: This is a 51-year-old male the ER for evaluation of abdominal pain chest pain. Patient also 20 of some neck pain and right-sided neck pain. Patient is calm. Medical history, obesity recent history of gallbladder surgery. Patient states her postop course was going well he was here couple days ago for similar pain. Discharged home and was feeling better and again started tonight. Denies any current fevers normal bowel movements no nausea or vomiting - Related Data Home Medications Medication Instructions Recorded Confirmed [place]-3 Fatty Acids/Fish Oil [Fish 2 cap PO DAILY 03/01/18 07/08/18 Oil 1,000 mg Softgel] Lisinopril-Hctz 20-12.5 mg 1 tab PO DAILY 07/08/18 07/08/18 [Zestoretic 20-12.5] Allergies Allergy/AdvReac Type Severity Reaction Status Date / Time No Known Allergies Allergy Verified 07/08/18 23:05 Review of Systems ROS Statement: Those systems with pertinent positive or pertinent negative responses have been documented in the HPI. ROS Other: All systems not noted in ROS Statement are negative. Past Medical History Past Medical History: Hyperlipidemia, Hypertension History of Any Multi-Drug Resistant Organisms: None Reported Past Surgical History: Cholecystectomy Past Psychological History: No Psychological Hx Reported Smoking Status: Never smoker Past Alcohol Use History: None Reported Past Drug Use History: None Reported - Past Family History Father History Unknown: Yes Mother History Unknown: Yes General Exam - General Exam Comments Initial Comments: Incision is clean and dry with no evidence of infection Limitations: no limitations General appearance: alert, in no apparent distress Head exam: Present: atraumatic, normocephalic, normal inspection Eye exam: Present: normal appearance, PERRL, EOMI. Absent: scleral icterus, conjunctival injection, periorbital swelling ENT exam: Present: normal exam, mucous membranes dry Neck exam: Present: normal inspection. Absent: tenderness, meningismus, lymphadenopathy Respiratory exam: Present: normal lung sounds bilaterally. Absent: respiratory distress, wheezes, rales, rhonchi, stridor Cardiovascular Exam: Present: regular rate, normal rhythm, normal heart sounds. Absent: systolic murmur, diastolic murmur, rubs, gallop, clicks GI/Abdominal exam: Present: distended, normal bowel sounds. Absent: tenderness , guarding, rebound, rigid Extremities exam: Present: normal inspection, full ROM, normal capillary refill. Absent: tenderness, pedal edema, joint swelling, calf tenderness Back exam: Present: normal inspection Neurological exam: Present: alert, oriented X3, CN II-XII intact Psychiatric exam: Present: normal affect, normal mood Skin exam: Present: warm, dry, intact, normal color. Absent: rash Course Vital Signs 07/08/18 07/08/18 21:52 23:55 Temperature 98.2 F Pulse Rate 102 H 90 Respiratory 20 18 Rate Blood Pressure 143/83 138/80 O2 Sat by Pulse 99 98 Oximetry - Reevaluation(s) Reevaluation #1: 07/09/18 00:14 Primary ER record as well as hospitalization requiring surgery is reviewed Medical Decision Making - Lab Data Result diagrams: 07/08/18 23:46 07/08/18 23:46 Lab Results 07/08/18 07/08/18 07/08/18 Range/Units 23:46 23:46 23:46 WBC 11.6 H (3.8-10.6) k/uL RBC 5.58 (4.30-5.90) m/uL Hgb 16.5 (13.0-17.5) gm/dL Hct 46.6 (39.0-53.0) % MCV 83.5 (80.0-100.0) fL MCH 29.6 (25.0-35.0) pg MCHC 35.4 (31.0-37.0) g/dL RDW 12.8 (11.5-15.5) % Plt Count 262 (150-450) k/uL Neutrophils % 80 % Lymphocytes % 12 % Monocytes % 6 % Eosinophils % 1 % Basophils % 0 % Neutrophils # 9.2 H (1.3-7.7) k/uL Lymphocytes # 1.4 (1.0-4.8) k/uL Monocytes # 0.6 (0-1.0) k/uL Eosinophils # 0.1 (0-0.7) k/uL Basophils # 0.0 (0-0.2) k/uL Sodium 136 L (137-145) mmol/L Potassium 3.3 L (3.5-5.1) mmol/L Chloride 101 (98-107) mmol/L Carbon Dioxide 21 L (22-30) mmol/L Anion Gap 14 mmol/L BUN 12 (9-20) mg/dL Creatinine 0.80 (0.66-1.25) mg/dL Est GFR (CKD-EPI)AfAm >90 (>60 ml/min/1.73 sqM) Est GFR (CKD-EPI)NonAf >90 (>60 ml/min/1.73 sqM) Glucose 117 H (74-99) mg/dL Plasma Lactic Acid Yair (0.7-2.0) mmol/L Calcium 9.7 (8.4-10.2) mg/dL Total Bilirubin 1.2 (0.2-1.3) mg/dL AST 40 (17-59) U/L ALT 51 (21-72) U/L Alkaline Phosphatase 70 (38-126) U/L Total Creatine Kinase 76 (55-170) U/L CK-MB (CK-2) 0.4 (0.0-2.4) ng/mL CK-MB (CK-2) Rel Index 0.5 Troponin I <0.012 (0.000-0.034) ng/mL Total Protein 8.1 (6.3-8.2) g/dL Albumin 4.4 (3.5-5.0) g/dL Amylase 42 (30-110) U/L Lipase 28 (23-300) U/L 07/08/18 Range/Units 23:46 WBC (3.8-10.6) k/uL RBC (4.30-5.90) m/uL Hgb (13.0-17.5) gm/dL Hct (39.0-53.0) % MCV (80.0-100.0) fL MCH (25.0-35.0) pg MCHC (31.0-37.0) g/dL RDW (11.5-15.5) % Plt Count (150-450) k/uL Neutrophils % % Lymphocytes % % Monocytes % % Eosinophils % % Basophils % % Neutrophils # (1.3-7.7) k/uL Lymphocytes # (1.0-4.8) k/uL Monocytes # (0-1.0) k/uL Eosinophils # (0-0.7) k/uL Basophils # (0-0.2) k/uL Sodium (137-145) mmol/L Potassium (3.5-5.1) mmol/L Chloride (98-107) mmol/L Carbon Dioxide (22-30) mmol/L Anion Gap mmol/L BUN (9-20) mg/dL Creatinine (0.66-1.25) mg/dL Est GFR (CKD-EPI)AfAm (>60 ml/min/1.73 sqM) Est GFR (CKD-EPI)NonAf (>60 ml/min/1.73 sqM) Glucose (74-99) mg/dL Plasma Lactic Acid Yair 1.0 (0.7-2.0) mmol/L Calcium (8.4-10.2) mg/dL Total Bilirubin (0.2-1.3) mg/dL AST (17-59) U/L ALT (21-72) U/L Alkaline Phosphatase (38-126) U/L Total Creatine Kinase (55-170) U/L CK-MB (CK-2) (0.0-2.4) ng/mL CK-MB (CK-2) Rel Index Troponin I (0.000-0.034) ng/mL Total Protein (6.3-8.2) g/dL Albumin (3.5-5.0) g/dL Amylase (30-110) U/L Lipase (23-300) U/L Disposition Clinical Impression: Abdominal pain Disposition: HOME SELF-CARE Condition: Good Instructions: Abdominal Pain (ED) Is patient prescribed a controlled substance at d/c from ED?: No Referrals: Koby Miranda DO [Primary Care Provider] - 1-2 days
[2018-07-09 00:20] LABS: Creatine Kinase 76 U/L (55-170)
[2018-07-09 00:34] LABS: Creatine Kinase MB 0.4 ng/mL (0.0-2.4); Troponin I <0.012 ng/mL (0.000-0.034)
[2018-07-09] MEDS ORDERED: POTASSIUM BICARBONATE/CIT AC 20 MEQ TABLET.EFF PO ONE (00:34)
--- NOTE | 2018-07-09 00:56 | CT ---
EXAMINATION TYPE: CT abdomen pelvis w con DATE OF EXAM: 07/09/2018 COMPARISON: None HISTORY: No prior, worsening upper abd pain/idigestion, history of cholecystectomy and hypertension CT DLP: 2757.90 mGycm Automated exposure control for dose reduction was used. TECHNIQUE: Helical acquisition of images was performed from the lung bases through the pelvis. CONTRAST: Performed without Oral Contrast and with IV Contrast, patient injected with 100 mL of Isovue 370. FINDINGS: Lung bases are clear of consolidation. There is no pleural effusion. Heart size is normal. Liver appears normal. Bile ducts are not dilated. Spleen is enlarged and measures 16 cm. There is no pancreatic mass. There are clips from cholecystectomy. There is no adrenal mass. Kidneys show satisfactory contrast opacification. There is no hydronephrosi s. There is no evidence of a thickened appendix. There is no ascites. I see no intestinal wall thicke feliz. There are no dilated loops. There is no evidence of a bowel obstruction. There is no evidence o f free air. Lumbar spine is intact. Bladder distends smoothly. IMPRESSION: NO ACUTE ABNORMALITY IN CT SCAN OF THE ABDOMEN AND PELVIS. NO EVIDENCE OF APPENDICITIS. SPLENOMEGALY.
--- NOTE | 2018-07-09 01:01 | CT ---
EXAMINATION TYPE: CT angio chest DATE OF EXAM: 07/09/2018 12:44 AM COMPARISON: None HISTORY: No prior, worsening upper abd pain/idigestion, history of cholecystectomy and hypertension, R/O PE CT DLP: 828.50 mGycm Automated exposure control for dose reduction was used. CONTRAST: CTA scan of the thorax is performed with IV Contrast, patient injected with 100 mL of Isovue 370, pul monary embolism protocol. There are 3-D post processed images.. FINDINGS: The lungs are clear of infiltrate. There are small linear density in the lingula left upper lobe. The re is no pleural effusion. There is no pericardial effusion. 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 There is no evidence of dissection. There is suboptimal contrast density in the smaller branches of the pulmonary arteries. I see no cent ral pulmonary embolism. There is no mediastinal adenopathy. There are no hilar masses. The bony thora x is intact. IMPRESSION: SUBOPTIMAL EXAM. NO CENTRAL PULMONARY EMBOLISM. IF THERE IS PERSISTENT CLINICAL INDICATION then repea t exam with better timing is recommended.
[2018-07-09 01:19] VITALS: BP 144/92; PULSE 80; TEMP 98.5
== END 2018-07-09 01:19 | disposition home or self-care (01) ==
LOC: EC 21:50
DX: R10.9 Unspecified abdominal pain (principal); M54.2 Cervicalgia; R07.9 Chest pain, unspecified; I10 Essential (primary) hypertension; E66.9 Obesity, unspecified; Z68.43 Body mass index [BMI] 50.0-59.9, adult; Z79.899 Other long term (current) drug therapy; Z90.49 Acquired absence of other specified parts of digestive tract; Z98.890 Other specified postprocedural states
CPT/HCPCS: 36415; 80053; 82150; 82550; 82553; 83605; 83690; 84484; 85025; 71275; 74177; 99284; 96374; 96375 ×2; 96361; J2270; J2405; C9113; Q9967